=== PATIENT | female | born 1930 | race African-American/Black ===

== ENCOUNTER 2017-04-09 17:33 | Inpatient (IN) | payer OTHER ==
[~2017-04-09] VITALS: Ht 167.6 cm; Wt 82.6 kg
--- NOTE | ~2017-04-09 | EKG ---
[address] [address] ELECTROCARDIOGRAM REPORT Name: MILA PAZ Room #: 202-P ADM IN M.R.#: [id number] Admission: 04/09/17 Attend Phys: Aayush Spears MD Discharge: Date of : 34 Report #: [id number] THIS REPORT FOR: //name// [facility] Test Date: 2017-04-12 Test Time: 17:06:54 Pat Name: MILA PAZ Department: Room: 202 P Gender: F Truck Mechanic: verna : 1930 Requested By: Aayush Spears Order Number: [id number] MD: Hernan Brasher Measurements Intervals [place] Rate: 72 P: 54 [place]: 158 QRS: -22 QRSD: 144 T: 143 QT: 438 QTc: 480 Interpretive Statements Sinus rhythm Multiple premature complexes, vent & supraven Left bundle branch block Compared to ECG 04/10/2017 06:09:08 Ventricular premature complex(es) no longer present Electronically Signed On 04-13-2017 16:07:08 BLUEPRINT PROCESSOR by Hernan Brasher [email or web address] <ELECTRONICALLY SIGNED> By: Hernan Brasher MD 04/13/17 1607 1706 170 Hernan Brasher MD /EPI
--- NOTE | ~2017-04-09 | EKG ---
[address] [address] ELECTROCARDIOGRAM REPORT Name: MILA PAZ Room #: 202-P ADM IN M.R.#: [id number] Admission: 04/09/17 Attend Phys: Aayush Spears MD Discharge: Date of : 32 Report #: [id number] THIS REPORT FOR: //name// [facility] Test Date: 2017-04-10 Test Time: 06:09:08 Pat Name: MILA PAZ Department: Room: 202 P Gender: F Hand Stamper: GR : 1930 Requested By: Aayush Spears Order Number: [id number] MD: Hernan Brasher Measurements Intervals [place] Rate: 68 P: 67 [place]: 141 QRS: -29 QRSD: 141 T: 137 QT: 479 QTc: 510 Interpretive Statements Sinus rhythm Multiple ventricular premature complexes Left bundle branch block Compared to ECG 04/09/2017 18:29:52 No significant changes Electronically Signed On 04-12-2017 12:12:50 RUBBER ROLLER GRINDER OPERATOR by Hernan Brasher [email or web address] <ELECTRONICALLY SIGNED> By: Hernan Brasher MD 04/12/17 1212 8 8 Hernan Brasher MD /ODALYS
--- NOTE | ~2017-04-09 | HC ---
[facility] [address] [place] [address] CONSULTATION Name: MILA PAZ Room #: 202-P [facility] IN .R.#: [id number] Admission: 04/09/17 Attend Phys: Aayush Spears MD Discharge: 04/14/17 Date of : 32 Report #: [id number] THIS REPORT FOR: //name// CC: Aayush Spears DATE OF SERVICE: 04/12/2017 NEUROBEHAVIORAL STATUS EXAMINATION ATTENDING PHYSICIAN: Aayush Spears M.D. CHIMNEY BUILDER: Karl Umanzor, PhD CLINICAL PRESENTATION: The patient is an 86-year-old female, admitted to the [facility] for evaluation and treatment of mental status changes. Apparently, she had a temper outburst while at a grocery store after her Visa card was declined. She was with a peer at the store and was subsequently brought to the hospital for assessment and treatment. She carries diagnoses that include altered mental status, urinary tract infection, abnormal EKG without chest pain, chronic right hip pain, type 2 diabetes mellitus, hypertension and hyperlipidemia. A complete description of her medical condition and history along with medications can be found in her medical record. Neuropsychological consultation was requested to provide assistance in the assessment of cognitive and emotional status and to provide recommendations and services. Prior to this most recent medical event, she was living independently in her own home. She does not drive and has been requiring assistance to maintain community living from her daughter. She has three children. The patient's in 2011. She reports having discontinued driving about 5 years ago. 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 The patient is a college graduate. A prior history of treatment for anxiety/depression is reported. TECHNIQUES UTILIZED: Clinical interview, review of medical records, staff consultation and behavioral observation, Mini Mental Status Exam 2 standard version, clock drawing, calibrated ideational fluency assessment (letter and category fluency) and brief abstract reasoning test. EXAMINATION FINDINGS: The patient was alert and cooperative with the assessment. She was unable to describe the reason for her hospitalization. She does not report having any symptoms or identifying problems that require treatment. She denies difficulty with sleep, appetite, energy level or memory. Subtle difficulty in word finding is noted. She acknowledges subjective feelings of anxiety and depression. [facility] [address] [address] CONSULTATION Name: MILA PAZ Eloise Room #: 202-P [facility] IN [facility].#: [id number] Admission: 04/09/17 Attend Phys: Aayush Spears MD Discharge: 04/14/17 Date of : 32 Report #: [id number] Her performance on the MMSE 2 brief version was in the mild range of impairment with a raw score of 13/16. She was 3/3 for initial registration, 4/5 for orientation to time, 5/[address] and 1/3 correct for immediate recall of 3 items after a brief time delay and distraction. Her performance improved on the MMSE 2 standard version to a raw score of 26/30, which is a T score of 44. She was 4/5 for serial 7's. However, she required much assistance with her performance on serial 7's. Naming, repetition, auditory comprehension, ability to read and follow a single command and write a sentence were within normal limits. She was able to copy a simple geometric design. Her performance in verbal fluency suggests mild to moderate impairment with letter fluency with a raw score of 17 and a T score of 34, which is at the 5th percentile. Category fluency is in the moderate range of impairment with a raw score 25 and a T score of 27, which is at the 1st percentile. Total fluency was extremely low with a raw score of 37, T score of 24, and percentile rank of less than 1. She was 5/8 on a brief abstract test suggesting mild impairment. The patient was unable to set the hands of a clock at a designated time. She was able to draw a clock and place the numbers. However, the concept of hand placement was poor. Deficits are suggested in immediate recall, executive functioning and insight. DIAGNOSTIC IMPRESSION: Major neurocognitive disorder (dementia), possibly due to Alzheimer disease -- with intermittent irritability, mild to moderate severity. Unspecified depressive disorder with anxiety. RECOMMENDATIONS: Continue treatment program for neurocognitive disorder that includes the use of medication to support memory. Increased supervision and structure in her home will likely ensure increased safety upon discharge. The use of compensatory strategies for memory that would include assistance in management of medication, nutrition and finances will likely enhance the degree of success upon her return home. Reduce as much as medically possible the use of medication with sedating features. Thank you very much for allowing me to provide the consultation on this patient. <ELECTRONICALLY SIGNED> By: Karl Umanzor, PhD 04/19/17 1339 1330 40 Karl Umanzor, PhD /nt
--- NOTE | ~2017-04-09 | H ---
[facility] [place] [address] HISTORY AND PHYSICAL Name: MILA PAZ Room #: 202-P ADM IN M.R.#: [id number] Admission: 04/09/17 Attend Phys: Aayush Spears MD Discharge: Date of : 32 Report #: [id number] THIS REPORT FOR: //name// CC: [facility] Verito Umanzor PhD DATE OF SERVICE: 04/10/2017 CHIEF COMPLAINT: Meltdown. HISTORY OF PRESENT ILLNESS: The patient is an 86-year-old female who was brought to the Emergency Department by [facility] ambulance after suffering a "meltdown" at the grocery store. Apparently, they declined her Visa card and she was quite visibly upset and was screaming and hollering at the store at the scene, prompting the phone call. Apparently, she was there with her former 's niece, Roxanna Myrick, and Ms. Myrick helped make the arrangements to get her to the hospital. It is noteworthy to mention that the patient had a total hip arthroplasty just over a year ago at [facility]. In the time since that surgery, she has suffered with chronic severe right hip pain. During a followup visit recently her hip was reevaluated and it was recommended to her that she have revision of that surgery. Prior to being able to undergo another hip surgery, it was recommended that she have some major dental work performed. She was seen at the [facility] and was told that she needed to have 4 teeth removed. The patient is uncertain as to when that is to be scheduled. She relies very heavily upon her daughter, Remington, and upon friends for getting out and about and making doctors' appointments etc. The patient admits to having great difficulties with sleep, especially in the last several months. PAST MEDICAL HISTORY: Includes osteoarthritis, dementia, hypertension, hyperlipidemia, hip arthroplasty and diabetes mellitus type 2. She denies any significant history of heart disease or stroke. ALLERGIES: She has no known drug allergies. MEDICATIONS: On arrival at the hospital include [place], memantine, pioglitazone, simvastatin, lisinopril, Lexapro, Januvia and hydralazine. SOCIAL HISTORY: She is and a retired federal employee, having worked previously at the [employer]. She has two daughters, one of whom lives in [facility] and the other who lives here locally in [facility]. [facility] [address] [place] [address] HISTORY AND PHYSICAL Name: MILA PAZ Room #: 202-P [facility] IN [facility]#: [id number] Admission: 04/09/17 Attend Phys: Aayush Spears MD Discharge: Date of : 32 Report #: [id number] FAMILY HISTORY: Significant for longevity, diabetes and osteoarthritis. REVIEW OF SYSTEMS: The patient denies any headaches. She denies vision changes. She does have some chronic hearing loss, unchanged. She denies any problems with mouth pain or difficulty swallowing. She denies any neck pain or decreased range of motion. She denies chest pain or shortness of breath. She denies abdominal pain. Her bowel habits are reportedly regular. She denies any urinary symptoms at the moment (but was admitted with a diagnosis of urinary tract infection after her Emergency Room workup). She admits to severe problems with fatigue and inability to sleep because of her hip pain. The pain medication does help her manage the pain, but she is afraid of addiction issues. She does not drive. PHYSICAL EXAMINATION: VITAL SIGNS: When the patient presented in the Emergency Room, her vital signs revealed temperature of 36.4 degrees Celsius, pulse of 76, blood pressure of 135/48, respirations of 20 per minute and an oxygen saturation of 98%. Her self-reported weight was 161 pounds. GENERAL: The patient is a more pleasant elderly female without significant distress at the time of my exam the next morning. HEENT: Extraocular muscles are intact. The oropharynx is moist and pink. Sinuses are nontender. Hearing is mildly diminished bilaterally. NECK: Without adenopathy, thyromegaly, JVD, mass or significant bruit. LUNGS: Clear bilaterally. CARDIAC: Reveals a regular rhythm without significant murmur, gallop or tachycardia. ABDOMEN: Soft. Bowel sounds are present. No visceromegaly or masses. EXTREMITIES: There is trace edema in the lower extremities. Otherwise, she has good range of motion and pulses. There is tenderness in the right hip without redness or effusion. Prior hip arthroplasty wound has healed completely. NEUROLOGICAL: She is alert. She is oriented to person and place and time. There is no evidence of hallucinations or delusions. Her short-term memory is better than expected and she was able to give a reasonable accounting of what happened at the grocery store the night before, although there are holes. Her long-term memory is also better than expected -- she recognizes me on site and called me by name without prompting. She has significant recollections about her experiences at [facility] when she had her hip surgery, and she is very emotional in her assessments of others, telling me that I am her favorite doctor, and telling me that one of her daughters is being mean to her and so forth. SKIN: No overt skin breakdown or rashes. LABORATORY DATA: The EKG from the Emergency Room reveals a sinus rhythm with a rate of 77 beats per minute and a left bundle branch block. This was compared in the Emergency Room with a prior EKG from 04/09/2011, which at that time did [facility] [address] [place] [address] HISTORY AND PHYSICAL Name: MILA PAZ Room #: 202-P ADM IN ..#: [id number] Admission: 04/09/17 Attend Phys: Aayush Spears MD Discharge: Date of : 32 Report #: [id number] not reveal a left bundle branch block. She has had a subsequent one this morning, which is unchanged. Her urinalysis shows 2+ leukocyte esterase with 6-15 white blood cells and a few bacteria. Culture is pending. Blood chemistry reveals sodium 139, potassium 4.0, chloride 103, bicarbonate 27, BUN of 12, creatinine 1.1. The anion gap is 9. The estimated GFR is 57. The glucose was 179, nonfasting. Calcium was 10.2. No albumin was obtained. The troponin was 0.04. The CBC showed a white count of 8500 with a hemoglobin of 13.3, hematocrit 40.8, 79.9 is the mean cell volume, just below the lower limits of normal; RDW is 16.4, which is elevated and the platelet count is 280,000. Mechanical differential was performed, which is relatively normal. Urinalysis as described above and other than the infection, appeared reasonably normal. I have subsequently obtained a chest x-ray, which is normal. ASSESSMENT AND PLAN: 1. Altered mental status of uncertain etiology in the setting of senile dementia and depression and chronic insomnia -- I will obtain a CT scan of the head to assess for brain pathology, EEG to assess for as yet undiagnosed seizure disorder and will pursue a metabolic workup as well. 2. Urinary tract infection. We will await culture and continue antibiotics. 3. Abnormal unchanged EKG without chest pain -- the Emergency Room staff requested a Cardiology consult and I agree. Troponins were benign serially and so this is not an acute myocardial infarction at this time. However, given her apparent near future need for major hip surgery, a stress test is indicated. I will defer to the credit risk analyst about echocardiogram as well. 4. Chronic right hip pain, apparently due to complications or failure of prior arthroplasty. While the patient is hospitalized, we will request repeat films and ask for orthopedic surgical consultation in order to get a second opinion. The patient is agreeable to proceeding there as well. 5. Type 2 diabetes mellitus. We will continue current medications and monitor her glycemic control. 6. Hypertension. Continue current medications and monitor control. 7. Hyperlipidemia. We will continue current medications and monitor control as an outpatient. Please note, I did request Psychiatry and Neuropsychology consultations to help assess the patient's continuing mentation. My personal feeling in this matter is that her chronic sleep deprivation from hip pain is a very significant contributor to her explosive behavior at the grocery store on the date of admission. Since she lives alone, I am very cautious about recommending medications for sleep. I will await the recommendations of the consultants. <ELECTRONICALLY SIGNED> By: Aayush Spears MD 04/11/17 1145 1030 1123 Aayush Spears MD /nt
--- NOTE | ~2017-04-09 | CATHLAB ---
[facility] [place] [address] INVASIVE PROCEDURE REPORT Name: BRANDIMILA M Room #: 202-P ADM IN ..#: [id number] Admission: 04/09/17 Attend Phys: Aayush Spears MD Discharge: Date of : 32 Date of Service: 04/11/17 1317 Report #: [id number] THIS REPORT FOR: //name// APPROVED REPORT Patient Details Patient Status: In-Patient Room #: The patient is a 86 year-old female Event Personnel Dallin Perez Software Engineer Intern, Mario Campbell RN, Mario Campbell RN, Jose Antonio Angela Ellenburg, Ariel RN RN, Elizabeth Parker RTKaren Monitor Procedures Performed Left Heart Cath w/or w/o Coronaries [id number] [facility] Indication Arrhythmia, Dyspnea, Positive stress test Risk Factors Hypercholesterolemia, Hypertension Procedure Narrative The Right Groin^ was infiltrated with 1% Lidocaine subcutaneous anesthesia. A PINNACLE 4FR Sheath #[id number] sheath was inserted into the RFA^. Coronary angiography was performed using coronary diagnostic catheters. The right coronary system was accessed and visualized with a JR4 catheter. The left coronary system was accessed and visualized with a JL4 catheter. The left ventricle was accessed and visualized with a PIGTAIL catheter. Left ventricular/Aortic Valve gradient assessed via catheter pullback. Left ventriculogram was performed in 30 degree projection. Hemostasis was obtained with manual pressure following sheath removal without any complications. The patient tolerated the procedure well and there were no complications associated with the procedure. There was no hematoma. Fluoro Time: 2.10 minutes Dose: DAP 335.00 cGycm2 130 mGy Contrast Type and Amount: Omnipaque 130 ml Coronary Angiography The patient's coronary anatomy is co- dominant. [facility] [address] [place] [address] INVASIVE PROCEDURE REPORT Name: BRANDIMILA Eloise Room #: 202-P [facility] IN ..#: [id number] Admission: 04/09/17 Attend Phys: Aayush Spears MD Discharge: Date of : 32 Date of Service: 04/11/17 1317 Report #: [id number] Diagnostic Cath Left Main Large-caliber vessel, mild disease in the distal segment, 30%. LAD Mild plaquing at the ostium, 30%. There is also mild disease in the mid segment, 30%. Diagonal 1 Moderate size caliber vessel, mild disease in the proximal segment, 30%. Circumflex Codominant vessel. After giving off the only OM artery, there is a severe stenosis in the mid segment, 70%. This is a small-caliber vessel, recommend medical therapy. OM1 Moderate to large size caliber vessel, traveling down the lateral wall and supplies multiple branches. This vessel supplies the lateral and inferolateral segments. Right Coronary Patent vessel, no flow limiting lesions. R PDA Patent vessel, no flow limiting lesions. Left Ventriculography The left ventricle is normal in size with decreased contractility. The left ventricular ejection fraction is estimated to be 40-45%. Hemodynamics The aortic pressure is 181/86 mmHg with a mean of 128 mmHg. The left ventricular pressure is 189/84 mmHg with a mean of mmHg. The left ventricular end diastolic pressure is 88 mmHg. Conclusion 1. Mild disease in the LAD. 2. 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 3. Mild to moderate nonischemic cardiomyopathy. 4. Recommend medical therapy. <ELECTRONICALLY SIGNED> By: Dallin Perez MD 04/11/17 1317 16 16 Dallin Perez MD /INF
--- NOTE | ~2017-04-09 | EKG ---
[address] [address] ELECTROCARDIOGRAM REPORT Name: MILA PAZ Room #: 170-9 ADM IN M.R.#: [id number] Admission: 04/09/17 Attend Phys: Aayush Spears MD Discharge: Date of : 32 Report #: [id number] THIS REPORT FOR: //name// [facility] Test Date: 2017-04-09 Test Time: 18:29:52 Pat Name: MILA PAZ Department: Room: 170 Gender: F Garment Liner: MZOOK : 1930 Requested By: Anuj Canela Order Number: [id number] MD: Hernan Brasher Measurements Intervals [place] Rate: 77 P: 78 ID: [id number] QRS: -26 QRSD: 138 T: 139 QT: 443 QTc: 502 Interpretive Statements Sinus rhythm Multiple ventricular premature complexes Left bundle branch block Compared to ECG 04/09/2011 17:30:53 Left bundle-branch block now present Myocardial infarct finding no longer present Electronically Signed On 04-09-2017 21:28:42 MACHINE SETTER SHEET METAL by Hernan Brasher [email or web address] <ELECTRONICALLY SIGNED> By: Hernan Brasher MD 04/09/178 28 28 Hernan Brasher MD /EPI
--- NOTE | ~2017-04-09 | HC ---
[facility] [place] [address] CONSULTATION Name: MILA PAZ Room #: 202-P [facility] IN M.R.#: [id number] Admission: 04/09/17 Attend Phys: Aayush Spears MD Discharge: Date of : 32 Report #: [id number] THIS REPORT FOR: //name// CC: Aayush Spears MD DATE OF SERVICE: 04/10/2017 ORTHOPEDIC CONSULT NOTE PRIMARY CARE DOCTOR: Aayush Spears MD REASON FOR CONSULTATION: Right hip pain. HISTORY OF PRESENT ILLNESS: The patient is an 86-year-old female who was brought to the Emergency Department by [facility] ambulance after an apparent incident at the grocery store where she became very upset. I have been asked to evaluate her right hip for chronic persistent right hip pain. She reports undergoing surgery to treat a right hip fracture in 2016 the day after Thanksgiving and reports that it never healed well and she has had chronic pain and pain with weightbearing, predominantly in her groin and hip area. Upon further discussion, she reports seeing Dr. Ruiz at [place] who was recommended a revision to a total hip arthroplasty. She reports to me that she would like any surgery that she has done at [facility]. From the medical record, it appears that she was recommended to have some major dental work done. She apparently was seen at [facility] and was told she needed to have 4 teeth removed and I am uncertain if this has been done. PAST MEDICAL HISTORY: Dementia, hypertension, hyperlipidemia, right intramedullary nail fixation of the hip, type 2 diabetes. ALLERGIES: No known drug allergies. HOME MEDICATIONS: Include [place], memantine, pioglitazone, simvastatin, lisinopril, Lexapro, Januvia, and hydralazine. SOCIAL HISTORY: She is . She reports using a walker for ambulation. She denies smoking or drinking alcohol. She has a daughter who lives in [facility] and another one lives here locally in [place]. She apparently relies heavily on friends and family to get her around. REVIEW OF SYSTEMS: NEUROLOGIC: Denies numbness or tingling in her extremities. MUSCULOSKELETAL: Reports some diffuse left lower extremity pain per her due to overuse. She reports right knee pain as well. See HPI. [address] [address] CONSULTATION Name: IMLA PAZ Room #: 202-P [facility] IN [facility].#: [id number] Admission: 04/09/17 Attend Phys: Aayush Spears MD Discharge: Date of : 32 Report #: [id number] PAST SURGICAL HISTORY: Left total knee arthroplasty with revision of left total knee arthroplasty, intramedullary nail fixation of the right hip, appendectomy, possibly a D and C. PHYSICAL EXAMINATION: GENERAL: The patient is alert and oriented x 3. She interacts appropriately. She is a well-developed, well-nourished female in no acute distress. She is very easy to speak with. VITAL SIGNS: Most recent vital signs show her blood pressure of 129/68, temperature is 98, heart rate is 70, respiration rate 16. EXTREMITIES: Examination of her right lower extremity, skin is clean, dry and intact. She has brisk capillary refill. She has some diffuse swelling to her knee with no significant knee joint effusion. She has diffuse tenderness to her right thigh, knee and proximal leg. She has no tenderness to the distal leg, ankle or foot. She reports normal sensation. EHL, FHL, dorsiflexion and plantar flexion are intact. She is able to maintain a straight leg raise; however, any range of motion to her right knee or hip are painful. Left lower extremity exam, sensation is intact to light touch throughout. EHL, FHL, dorsiflexion and plantar flexion are intact. There is no tenderness to palpation throughout the left leg, ankle or foot. There is some mild diffuse knee joint tenderness. She is able to perform a straight leg raise. There is no pain with left hip range of motion. There is some mild pain with left knee range of motion. LABORATORY DATA: Done on 04/09/2017 show white blood cell count 8.5, hemoglobin 13.3, hematocrit 40.8, platelet count 280. RADIOGRAPHS: AP pelvis and AP and lateral of the right femur show an intramedullary nail in the femur as well and into the head, cephalomedullary device with apparent nonunion of the basicervical or intertrochanteric femur fracture with cut out of the screw into the articular surface. Distally, one of the proximal cross screws may show some lucency. 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 At this point, I am in agreement with her other evaluating physician, Dr. Ruiz that she would be best served with a removal of her hardware and placement of a total hip arthroplasty. I will have one of my [facility] partners formally [facility] partners see this patient over the weekend and further planning can be established. I will also order AP and lateral views of the bilateral knees. Questions were encouraged and answered to the best of my ability. <ELECTRONICALLY SIGNED> By: Stephenie Sanchez MD 04/14/17 1411 1732 0411 Stephenie Sanchez MD /nt
--- NOTE | ~2017-04-09 | EKG ---
[address] [address] ELECTROCARDIOGRAM REPORT Name: MILA PAZ Room #: 202-[facility] IN .R.#: [id number] Admission: 04/09/17 Attend Phys: Aayush Spears MD Discharge: 04/14/17 Date of : 32 Report #: [id number] THIS REPORT FOR: //name// [facility] Test Date: 2017-04-14 Test Time: 06:25:05 Pat Name: MILA PAZ Department: Room: 202 Gender: F District Branch Manager: ANNALISA : 1930 Requested By: Hernan Brasher Order Number: [id number] MD: Hernan Brasher Measurements Intervals [place] Rate: 72 P: 94 [place]: 146 QRS: -11 QRSD: 142 T: 161 QT: 431 QTc: 472 Interpretive Statements Sinus rhythm Ventricular premature complex Left bundle branch block Compared to ECG 04/12/2017 17:06:54 Ventricular premature complex(es) now present Electronically Signed On 04-14-2017 16:26:56 [employer] by Hernan Brasher [email or web address] <ELECTRONICALLY SIGNED> By: Hernan Brasher MD 04/14/17 1626 0625 0625 Hernan Brasher MD /EPI
--- NOTE | ~2017-04-09 | EEG ---
[facility] [place] [address] ELECTROENCEPHALOGRAM Name: MILA PAZ Room #: 202-P [facility] IN M.R.#: [id number] Admission: 04/09/17 Attend Phys: Aayush Spears MD Discharge: 04/14/17 Date of : 32 Report #: [id number] THIS REPORT FOR: //name// CC: Aayush Spears HISTORY: The patient is an 86-year-old female with altered mental status. An EEG is requested for further evaluation. DESCRIPTION: The awake record consists of a poorly developed posterior dominant rhythm. The majority of the record consists of eye blink artifact, EKG artifact and low amplitude 20-25 cycle per second activity predominant over the frontocentral head regions. No focal abnormalities or epileptiform discharges were noted. Photic stimulation was not activating. No significant sleep was recorded. IMPRESSION: This is an unremarkable adult awake record. A well-developed posterior dominant rhythm was not seen and is a nonspecific finding. Beta activity was seen and may be secondary to medication effect with a benzodiazepine or barbiturate. There is n evidence of seizure activity. <ELECTRONICALLY SIGNED> By: Kia Hodge DO 04/17/17 1024 1653 194 Kia Hodge DO /nt
--- NOTE | ~2017-04-09 | 2DMMODE ---
[place] [address] [facility] [place] [address] 2 D/M-MODE ECHOCARDIOGRAM Name: MILA PAZ Room #: 202-P [facility] IN ..#: [id number] Admission: 04/09/17 Attend Phys: Aayush Spears MD Discharge: Date of : 32 Date of Service: 04/10/17 1214 Report #: [id number] THIS REPORT FOR: //name// APPROVED REPORT Study performed: 04/10/2017 10:53:36 EXAM: Comprehensive 2D, Doppler, and color-flow Echocardiogram Patient Location: Bedside Room #: 202 Status: routine BSA: 1.85 HR: 67 bpm BP: 129/68 mmHg Other Information Study Quality: Good Indications Diabetes Hypertension/HDD LBBB, HLP. 2D Dimensions RVDd: 35.14 mm LVEF(%): 40.66 (>50%) IVSd: 13.96 (7-11mm) LVOT Diam: 20.44 (18-24mm) LVDd: 42.14 mm PWd: 13.37 (7-11mm) Ascending Ao: 29.57 (22-36mm) LVDs: 33.87 (25-40mm) Aortic Root: 29.86 mm IVC: 24.00 mm Sutherland's LVEF: 40.66 % Volumes Left Atrial Volume (Systole) Single Plane 4CH: 63.41 mL Single Plane 2CH: 37.29 mL LA ESV Index: 29.00 mL/m2 Aortic Valve AoV Peak Ervin.: 1.37 m/s AO Peak Gr.: 7.52 mmHg LVOT Max P.12 mmHg LVOT Max V: 1.01 m/s BLAKE Vmax: 2.43 cm2 Mitral Valve E/A Ratio: 0.6 [facility] [place] [address] 2 D/M-MODE ECHOCARDIOGRAM Name: MILA PAZ Room #: 202-P [facility] IN ..#: [id number] Admission: 04/09/17 Attend Phys: Aayush Spears MD Discharge: Date of : 32 Date of Service: 04/10/17 1214 Report #: [id number] MV Decel. Time: 236.51 ms MV E Max Ervin.: 0.57 m/s MV A Ervin.: 0.99 m/s MV PHT: 68.59 ms IVRT: 156.86 ms Pulmonary Valve PV Peak Ervin.: 1.08 m/s PV Peak Gr.: 4.[address] End Vmax: 1.45 m/s Pulmonary Vein P Vein S: 0.63 m/s P Vein A: 0.25 m/s P Vein D: 0.35 m/s P Vein A Dur.: 106.1 msec P Vein S/D Ratio: 1.80 Tricuspid Valve TR Peak Ervin.: 2.84 m/s TR Peak Gr.: 32.16 mmHg PA Pressure: 42.00 mmHg Left Ventricle The left ventricle is normal size. There is mild global hypokinesis of the left ventricle. Mild to moderate concentric left ventricular hypertrophy. Left ventricular systolic function is mildly decreased. LVEF is 40-45%. Grade I - abnormal relaxation pattern. Right Ventricle The right ventricle is normal size. The right ventricular systolic function is normal. Atria The left atrium size is normal. The right atrium size is normal. Aortic Valve The aortic valve is normal in structure. Aortic valve is calcified. No aortic regurgitation is present. There is no aortic valvular stenosis. Mitral Valve The mitral valve is normal in structure. Trace mitral regurgitation. No evidence of mitral valve stenosis. Tricuspid Valve The tricuspid valve is normal in structure. There is trace to mild tricuspid regurgitation. Estimated PAP 42 mmHg. There is moderate [facility] [address] [place] [address] 2 D/M-MODE ECHOCARDIOGRAM Name: MILA PAZ Room #: 202-P [facility] IN [facility]#: [id number] Admission: 04/09/17 Attend Phys: Aayush Spears MD Discharge: Date of : 32 Date of Service: 04/10/17 1214 Report #: [id number] pulmonary hypertension. Pulmonic Valve The pulmonary valve is normal in structure. Trace pulmonic regurgitation. Great Vessels The aortic root is normal in size. IVC is dilated and collapses >50% with inspiration. Pericardium Small anterior pericardial effusion noted in the subcostal view. <Conclusion> The left ventricle is normal size. There is mild global hypokinesis of the left ventricle. LVEF is 40-45%. The aortic valve is normal in structure. Aortic valve is calcified. The mitral valve is normal in structure. Trace mitral regurgitation. The tricuspid valve is normal in structure. There is trace to mild tricuspid regurgitation. Estimated PAP 42 mmHg. There is moderate pulmonary hypertension. The pulmonary valve is normal in structure. Trace pulmonic regurgitation. Small anterior pericardial effusion noted in the subcostal view. <ELECTRONICALLY SIGNED> By: Eric Wright MD 04/10/17 1214 13 13 Eric Wright MD /INF
[~2017-04-09 17:33] MED LIST: ACTOS 45 MG45 M1 PO; HYDRALAZINE 5050 M1 PO; JANUVIA100 MG PO; LEXAPRO 10 MG T10 MG PO; LISINOPRIL10 MG PO; NAMENDA 10 MG T10 MG PO; NORCO 5-325 TA1 EACH PO; SIMVASTATIN20 MG PO
[2017-04-09 17:36] VITALS: BP 135/48
[2017-04-09 19:08] LABS: ABSOLUTE NEUTROPHILS 5.9 thou/uL (1.4-8.2); BASOPHILS 0.7 % (0.0-2.0); EOSINOPHILS 1.6 % (0.0-3.0); HEMATOCRIT 40.8 % (37.0-47.0); HEMOGLOBIN 13.3 gm/dL (12.0-15.0); LYMPHOCYTES 19.8 % (24.0-44.0); MANUAL DIFF NO; MCH 26.1 pg (26.0-34.0); MCHC 32.6 g/dL (28.0-37.0); MCV 79.9 fL (80.0-100.0); MONOCYTES 7.8 % (1.0-8.0); PLATELET COUNT 280 thou/uL (150-400); POLYS 70.1 % (36.0-66.0); RDW 16.4 % (10.5-14.5); WBC 8.5 thou/uL (4.0-11.0)
[2017-04-09 19:12] LABS: ANION GAP 9 mmol/L (7-16); BUN 12 mg/dL (7-18); CALCIUM 10.2 mg/dL (8.5-10.1); CHLORIDE 103 mmol/L (98-107); CO2 27 mmol/L (21-32); CREATININE 1.1 mg/dL (0.6-1.0); GLUCOSE 179 mg/dL (74-106); SODIUM 139 mmol/L (136-145)
[2017-04-09 19:21] LABS: TROPONIN-I < 0.04 ng/mL (<0.06)
[2017-04-09 19:35] LABS: URINE BILIRUBIN NEGATIVE (Negative); URINE BLOOD TRACE (Negative); URINE COLOR YELLOW; URINE GLUCOSE-RANDOM* NEGATIVE (Negative); URINE KETONES NEGATIVE (Negative); URINE NITRITE NEGATIVE (Negative); URINE PROTEIN (DIPSTICK) NEGATIVE (Negative); URINE SPECIFIC GRAVITY 1.015 (1.003-1.035); URINE UROBILINOGEN 0.2 E.U./dl (0.2-1.0)
[2017-04-09 19:44] LABS: BACTERIA 1-9 Few /HPF (None Seen); CASTS None Seen /LPF (None Seen); CRYSTALS None Seen /LPF (None Seen); SQUAMOUS 0-3 Few /LPF (0-3); URINE RBC None Seen /HPF (0-2); URINE WBC 6-15 Few /HPF (0-5)
[2017-04-09 20:26] VITALS: BP 143/65
[2017-04-09 21:15] VITALS: BP 153/75
[2017-04-09 23:25] VITALS: BP 153/71
[2017-04-10 04:00] VITALS: BP 130/51
[2017-04-10 07:38] VITALS: BP 129/68
[2017-04-10 19:21] VITALS: BP 136/62
[2017-04-10 23:11] VITALS: BP 120/49
[2017-04-11 04:01] VITALS: BP 139/67
[2017-04-11 06:44] LABS: HEMATOCRIT 36.9 % (37.0-47.0); HEMOGLOBIN 12.2 gm/dL (12.0-15.0); MCH 26.5 pg (26.0-34.0); MCHC 33.1 g/dL (28.0-37.0); RBC 4.62 mil/uL (4.20-5.00); RDW 15.9 % (10.5-14.5); WBC 6.9 thou/uL (4.0-11.0)
[2017-04-11 07:03] LABS: ALBUMIN 2.8 g/dL (3.4-5.0); CALCIUM 8.8 mg/dL (8.5-10.1); POTASSIUM 3.7 mmol/L (3.5-5.1); TOTAL BILIRUBIN 0.3 mg/dL (<0.1-1.0); TOTAL PROTEIN 6.2 g/dL (6.4-8.2)
[2017-04-11 07:30] LABS: FOLIC ACID 18.1 ng/mL (8.6-58.9); TSH 0.494 uIU/mL (0.358-3.740)
[2017-04-11 07:46] VITALS: BP 134/73
[2017-04-11 11:45] VITALS: BP 106/66
[2017-04-11 15:10] VITALS: BP 142/82
[2017-04-11 19:27] VITALS: BP 150/70
[2017-04-11 23:11] VITALS: BP 126/61
[2017-04-11 23:11] LABS: GLYCOHEMOGLOBIN (HGB A1C) 7.2 % (4.8-5.6)
[2017-04-12 03:45] VITALS: BP 152/66
[2017-04-12 07:40] VITALS: BP 131/66
[2017-04-12 07:59] LABS: HEMATOCRIT 37.9 % (37.0-47.0); HEMOGLOBIN 12.5 gm/dL (12.0-15.0); MCH 26.1 pg (26.0-34.0); MCHC 32.9 g/dL (28.0-37.0); MCV 79.4 fL (80.0-100.0); RBC 4.78 mil/uL (4.20-5.00); RDW 16.1 % (10.5-14.5); WBC 6.9 thou/uL (4.0-11.0)
[2017-04-12 08:09] LABS: CALCIUM 9.2 mg/dL (8.5-10.1); CREATININE 1.1 mg/dL (0.6-1.0); POTASSIUM 3.7 mmol/L (3.5-5.1)
[2017-04-12 12:40] VITALS: BP 133/67
[2017-04-12 17:25] VITALS: BP 128/73
[2017-04-12 19:19] VITALS: BP 127/58
[2017-04-13 04:07] VITALS: BP 147/61
[2017-04-13 09:11] VITALS: BP 129/51
[2017-04-13 12:47] VITALS: BP 143/51
[2017-04-13 16:06] VITALS: BP 122/57
[2017-04-13 19:42] VITALS: BP 109/50
[2017-04-14 03:49] VITALS: BP 140/67
[2017-04-14 09:00] VITALS: BP 136/72
[2017-04-14 10:04] VITALS: BP 136/72
[2017-04-14 12:01] VITALS: BP 115/92
== END 2017-04-14 14:22 | disposition home health service (06) | DRG 286 ==
LOC: ER 17:33 → 2N 20:04 → EROBS 20:04 → 2N 20:57 → ENTRNSPT 04-14 14:03 → EDTRNSPTSTS 04-14 14:13 → 2N 04-14 14:22
PROVIDERS: Internal Medicine; Internal Medicine Cardiovascular Disease; Nurse Practitioner
PROC: 4A023N7 Measurement of Cardiac Sampling and Pressure, Left Heart, Percutaneous Approach (ICD-10-PCS; principal; 2017-04-11)
PROC: B2151ZZ Fluoroscopy of Left Heart using Low Osmolar Contrast (ICD-10-PCS; principal; 2017-04-11)
PROC: B2111ZZ Fluoroscopy of Multiple Coronary Arteries using Low Osmolar Contrast (ICD-10-PCS; principal; 2017-04-11)
DX: I25.10 Atherosclerotic heart disease of native coronary artery without angina pectoris (principal); G93.41 Metabolic encephalopathy; N39.0 Urinary tract infection, site not specified; F01.51 Vascular dementia, unspecified severity, with behavioral disturbance; F02.81 Dementia in other diseases classified elsewhere, unspecified severity, with behavioral disturbance; E44.0 Moderate protein-calorie malnutrition; I42.9 Cardiomyopathy, unspecified; R41.82 Altered mental status, unspecified; I44.7 Left bundle-branch block, unspecified; I49.9 Cardiac arrhythmia, unspecified; I10 Essential (primary) hypertension; E78.5 Hyperlipidemia, unspecified; E11.9 Type 2 diabetes mellitus without complications; M25.551 Pain in right hip; G30.9 Alzheimer's disease, unspecified; E78.00 Pure hypercholesterolemia, unspecified; G89.29 Other chronic pain; Z96.652 Presence of left artificial knee joint; F41.8 Other specified anxiety disorders; Z86.73 Personal history of transient ischemic attack (TIA), and cerebral infarction without residual deficits; Z83.3 Family history of diabetes mellitus; Z79.899 Other long term (current) drug therapy; Z82.61 Family history of arthritis; Z90.49 Acquired absence of other specified parts of digestive tract; Z82.49 Family history of ischemic heart disease and other diseases of the circulatory system; Z23 Encounter for immunization; Z87.81 Personal history of (healed) traumatic fracture
CPT/HCPCS: 10081

== ENCOUNTER 2018-12-13 12:11 | Emergency (ER) | payer OTHER ==
[~2018-12-13] VITALS: Ht 167.6 cm; Wt 79.4 kg
[2018-12-13 17:55] VITALS: BP 145/51
== END 2018-12-13 13:57 | disposition home or self-care (01) ==
LOC: ER 12:11
DX: R11.0 Nausea (principal); I10 Essential (primary) hypertension; E11.9 Type 2 diabetes mellitus without complications; E78.5 Hyperlipidemia, unspecified; F03.90 Unspecified dementia, unspecified severity, without behavioral disturbance, psychotic disturbance, mood disturbance, and anxiety; Z90.710 Acquired absence of both cervix and uterus

== ENCOUNTER 2018-12-16 12:24 | Inpatient (IN) | payer OTHER ==
[~2018-12-16] VITALS: Ht 167.6 cm; Wt 81.9 kg
--- NOTE | ~2018-12-16 | HC ---
[facility] [place] [address] CONSULTATION Name: MILA PAZ Room #: 524A-A ADM IN M.R.#: [id number] Admission: 12/16/18 Attend Phys: Moraima Boone DO Discharge: Date of : 32 Report #: [id number] THIS REPORT FOR: //name// CC: MORAIMA Russell MD DATE OF SERVICE: 01/09/2019 INTRODUCTION: The patient is an 88-year-old female being seen in the [facility] floor for general foot care. The patient has a history of diabetes mellitus. Denies past foot complications. She denies neurovascular complications, ulcers, etc. She has been caring for her own feet in the past. Her current issues stem from the need for nail care. Remainder of her past medical history with regard to this consultation not remarkable. PHYSICAL EXAMINATION: Pedal exam, dorsalis pedis, posterior tibial pulses are graded at 1/4. Capillary refill time is within normal limits. There is mild bilateral 1+ pedal edema. Neurologically, the patient is grossly intact to all sensory stimulus including sharp, dull, proprioceptive and vibratory sensations. She is able to assist with Hazel Hurst-Aidan monofilament at all levels. The patient's dermatologic exam reveals dry skin, free of ulcerations, wounds or other irregularities. General skin condition and integrity is within normal limits. The patient's nails are thickened, elongated, show clinical evidence of onychodystrophy associated with onychomycosis. There are no acute findings with regard to her nails. Nails are trimmed today. No additional underlying pathology was noted. IMPRESSION: 1. Diabetes mellitus, low foot risk. 2. Onychodystrophy associated with onychomycosis, bilateral feet. PLAN: The patient's nails were debrided as discussed, no further treatment was required. It has been a pleasure having the opportunity of caring for this individual, be pleased to follow up with her upon request. By: 1030 2218 Luca Matias DPM /estephanie
--- NOTE | ~2018-12-16 | D ---
[facility] [place] [place] [address] DISCHARGE SUMMARY Name: MILA PAZ Room #: 524A-A [facility] IN M.R.#: [id number] Admission: 12/16/18 Attend Phys: Saroj Boone DO Discharge: 01/13/19 Date of : 32 Report #: [id number] THIS REPORT FOR: //name// CC: Saroj Spears DATE OF SERVICE: 01/13/2019 PRIMARY ATTENDING PHYSICIAN: Saroj Boone DO PREMIUM REPRESENTATIVE AT THE TIME OF DISCHARGE: Aayush Spears MD. DISCHARGE DIAGNOSIS: Major neurocognitive disorder with behavioral disturbance, much improved. Medical comorbidities are as follows, gastroesophageal reflux disease, on Protonix ____ x 3 months; type 2 diabetes mellitus, stable; hypertension; osteoarthritis, multiple sites; and prolonged QTC from 2017 EKG. The patient is discharged to [facility]. Psychiatric and medical care to be performed at that facility. The patient is on 1800-calorie diabetic diet. Also, the patient gets Glucerna breakfast for weight gain. DISCHARGE MEDICATIONS: Aspirin 81 mg p.o. daily for cardiac protection, atorvastatin 10 mg p.o. at bedtime for hyperlipidemia, hydralazine 50 mg p.o. daily for hypertension, amlodipine 5 mg p.o. daily for hypertension, lisinopril 10 mg oral for hypertension, memantine 10 mg oral twice a day for cognitive enhancement, Protonix 40 mg daily at bedtime for GERD, pioglitazone 45 mg oral daily for diabetes, cholecalciferol 5000 international units oral daily. LABORATORY DATA: From this hospitalization, ____ was 100. I believe that the patient had a brief medical admission prior to being admitted to the [facility]. Actually, she is from the [facility], so most of the labs were done there. REASON FOR ADMISSION: She is sent by the EMS due to being confused and concerns about her living environment, was unkempt, unclean, noisy. She was guarded. Apparently, she also made a threat of suicide to office staff member. HOSPITAL COURSE: The patient was admitted to the Geriatric Psychiatry Unit. The patient very quickly had resolution of mood symptoms, although bipolar disorder had been entertained. I believe the patient's performance from ____ 30. Her difficulty functioning in independent living would be suggestive of at least some major neurocognitive disorder of mild degree. We got some input from her family. She only has 1 daughter local, son in [place], other daughter in [facility] [address] [facility] [facility] [place] [address] DISCHARGE SUMMARY Name: MILA PAZ Room #: 524A-A [facility] IN [facility]#: [id number] Admission: 12/16/18 Attend Phys: Saroj Boone DO Discharge: 01/13/19 Date of : 32 Report #: [id number] [place]. None were great sources of collateral, but nonetheless, she had previously been placed in nursing facility and had been pulled out of there due to care concerns from her daughter. The patient now is still unable to take care of herself and requiring 24 x 7 supervision and assistance in areas of medication management, appointments, higher level decisions. Actually, she had a DPOA in place ____ copy of. The patient improved. No suicidal or homicidal. At the time of discharge, she was calm and cooperative. There was an extended delay that was due to her not having suitable placement. PHYSICAL EXAMINATION: VITAL SIGNS: BP on discharge 122/58, respiratory rate regular. MENTAL STATUS EXAMINATION: This is a well-developed, fairly nourished female, appearing stated age, has an assisted gait, wearing glasses. Attention intact. Concentration is intact. Speech is normal in rate, volume, and tone. Thought process is linear and goal directed. Thought content focused on discharge. Mood and affect congruent and euthymic, fair range. Denies HI or SI. Denied hopelessness or helplessness. Denied suicidal or homicidal intent or plan. Memory noted to be slightly impaired. Insight fair to limited. Judgment fair to limited. Fund of knowledge in the average range. Prognosis for this patient is fair to guarded given her major neurocognitive disorder and will depend on risk factor management. Risk factor management can influence how quickly the patient declines and I think at this point, she is an excellent candidate for the assisted living and memory care level. By: 2335 0250 Saroj Boone, /nt
--- NOTE | 2018-12-16 13:30 | NUR ---
PT ARRIVED VIA EMS FROM [facility]. PT STATED SHE WANTED TO COME HERE INSTEAD OF [facility] TO SEE HER DR. JAMISON. PT DENIES ANY SI AT THIS TIME AND ALSO AT [facility]. PT DID CALL DR. KIRT ROBBINS UPSET ABOUT HER APT SHE IS LIVING IN THAT THERE WAS AN ODOR THAT SHE COULD SMELL ALL THE TIME, DRUGS POSS. PT ALSO STATED SHE IS A VERY CLEAN PERSON AND IS STILL CLEANING OUT DOG HAIR FROM [employer] IN APT. SHE SAID SHE GOT INTO A VERBAL DISAGREEMENT WITH THE [facility] AND [facility] CALLED HER A DR. DR. JAMISON CAME IN DURING INTERVIEW AND STATED HIS CONTACT AGENT WAS WORRIED ABOUT HER PHONE CALL. PT TEARFUL STILL OF PASSING AWAY 08/04/11 AND WAS FOR 29 YEARS. SHE ALSO STATED THAT SHE HAD FIVE FAMILY MEMBERS PASS AWAY. PT STATED SHE IS NUMBER 2 OF 17 SIBLINGS AND THERE ARE ONLY HER AND ONE MORE SIBLING LEFT. PT STATED SHE WALKED AWAY FROM A NH A YEAR AGO FROM OTHERS BEING MISTREATED, AND SHE STATED SHE DIDN'T GET HER MEDS THERE THAT SHE PAID FOR. PT SAID SHE HAS HAD X2 LEFT KNEE SURGERY AND X2 RT HIP SURGERY DONE, AND USES A WALKER. SHE SAID SHE WOULD LIKE TO HAVE SOMEONE 2-3 DAYS A WEEK TO HELP WITH HOUSEWORK.
[2018-12-16 15:30] VITALS: BP 141/67
[2018-12-16 19:45] VITALS: BP 147/70
--- NOTE | 2018-12-17 03:53 | NUR ---
ASSUMED CARE OF PT AT 1900HRS. PT WAS SLEEPING AT THE TIME OF ASSESSMENT BUT WAS EASY TO AROUSE. PT COMPLAINED OF SOME BACK PAIN AND WAS TREATED WITH PRN PAIN MEDS. FALL PRECAUTION IN PLACE. PT TOOK MEDS WITH WATER. NO SI IDIATIONS REPORTED. VSS AND NO S/S OF ACUTE DISTRESS. WILL CONTINUE TO MONITOR.
--- NOTE | 2018-12-17 08:10 | EKG ---
[place] [address] [facility] [place] [address] ELECTROCARDIOGRAM REPORT Name: MILA PAZ Room #: 524A-A ADM IN M.R.#: [id number] Admission: 12/16/18 Attend Phys: Saroj Boone DO Discharge: Date of : 32 Report #: [id number] THIS REPORT FOR: //name// [facility] Test Date: 2018-12-16 Test Time: 15:05:22 Pat Name: MILA PAZ Department: Room: [facility] A Gender: F Fondant Machine Operator: Lesley MINOR : 1930 Requested By: Aayush Spears Order Number: [id number] MD: Agutsín Mckeon Measurements Intervals [place] Rate: 56 P: 74 [place]: 140 QRS: -29 QRSD: 145 T: 145 QT: 462 QTc: 446 Interpretive Statements Sinus rhythm Left bundle branch block Compared to ECG 04/14/2017 06:25:05 Ventricular premature complex(es) no longer present Electronically Signed On 12-17-2018 8:10:22 CDT by Agustín Mckeon [email or web address] <ELECTRONICALLY SIGNED> By: Agustín Mckeon MD, [facility] 12/17/18 0810 1505 1505 Agustín Mckeon MD, [facility] /EPI
[2018-12-17 08:49] VITALS: BP 162/63
--- NOTE | 2018-12-17 09:24 | HC ---
[facility] [place] [address] [address] CONSULTATION Name: MILA PAZ Room #: 524A-A ADM IN M.R.#: [id number] Admission: 12/16/18 Attend Phys: Moraima Boone DO Discharge: Date of : 32 Report #: [id number] THIS REPORT FOR: //name// CC: MORAIMA Robles DATE OF SERVICE: 12/16/2018 CHIEF COMPLAINT: "My apartment smells bad." HISTORY OF PRESENT ILLNESS: The patient is an 88-year-old -Emirati female who presented at [facility] Emergency Room on 12/13/2018 with the aforementioned complaint. She was evaluated and had an Accu-Chek. The ER staff did discuss the matter with me and they did not felt like she had any acute problems and she was sent back home. On the day prior to this admission, the patient called doctor's office and wanted to be seen immediately and threatened to hurt herself. With this information, I notified the patient's durable power of document review attorney, her daughter, Louise Jordan, in [facility]. We then called 911 and asked the paramedics to take her to the hospital with psychiatric facilities. She ended up going to [facility] to the Emergency Room there where she was evaluated and monitored. Evidently, her case was discussed with Dr. Boone, the head of the Behavioral Health Unit here at [facility] and she was transferred to this hospital today to the Behavioral Health Unit for further evaluation and treatment. PAST MEDICAL HISTORY: Includes type 2 diabetes mellitus, hypertension, osteoarthritis at multiple sites. She has had right total hip replacement x 2. She has also had a left knee replacement. She has a history of depression and has been on medication throughout the approximate 5 years that I have known her. She was hospitalized in 2017 and eventually went to the [facility] for alf stay. At the insistence of the patient and the 2 of her 3 children who live locally, she returned once again to independent living in an apartment. Most recently, she has been complaining about there being a disagreeable order in her apartment. Although visiting friends were unable to detect that smell, the patient nonetheless insisted that it was there and that there was something unclean going on there. The patient also admitted to feeling very alone and unsafe on her own. I did speak with her daughter Louise Jordan in [facility] again twice on the day of admission and I let her know that she has been admitted at the Behavioral Health Unit at [facility]. The patient does have underlying dementia as well. I believe the severity is mild at least and moderate at worst on any given day. Prolonged QTC. PAST SURGICAL HISTORY: Dilatation and curettage for remote reasons in the past. [facility] [address] [place] [address] CONSULTATION Name: MILA PAZ Room #: 524A-A ADM IN M.R.#: [id number] Admission: 12/16/18 Attend Phys: Moraima Boone DO Discharge: Date of : 32 Report #: [id number] ALLERGIES: She has no known drug allergies. MEDICATIONS: At time of admission includes memantine, pioglitazone, lisinopril, Lexapro, sitagliptin, hydralazine, amlodipine, aspirin, vitamin D3, lisinopril, multivitamin, BuSpar, atorvastatin or simvastatin, Tylenol, and nocturnal trazodone. FAMILY HISTORY: Coronary artery disease in her mother who at 63 years old. Also diabetes SOCIAL HISTORY: She is . She has 3 grown children and the durable power of document review attorney is her daughter, Louise Jordan, who lives in [facility] with her Dawn Jordan. She denies any vices including smoking or use of drugs or excessive use of alcohol. REVIEW OF SYSTEMS: The patient mostly admits to the bad smell that others cannot seem to appreciate or take note of, fatigue, loneliness and decreased mood. PHYSICAL EXAMINATION: Her weight is 77.1 kilograms. VITAL SIGNS: Her vital signs are not yet available. GENERAL: The patient is a very pleasant, loquacious elderly black female who is in no distress. HEENT: Normocephalic, atraumatic. Pupils are equally round and reactive to light, no icterus or injection, sinuses are nontender, oropharynx is moist and pink. Hearing is grossly normal. NECK: Supple, no JVD or thyromegaly or masses or adenopathy noted on exam. LUNGS: Clear to auscultation bilaterally. CARDIOVASCULAR: Regular rhythm without significant murmur, gallop or rub. ABDOMEN: Soft, positive bowel sounds, no visceromegaly or masses or hernias. EXTREMITIES: No cyanosis or clubbing or peripheral edema. Peripheral pulses are diminished in both lower extremities, but easily palpable. Normal pulses in the distal upper extremities are also noted. NEUROLOGIC: Cranial nerves 2-12 are intact. Cranial cerebellar shows no functional motor deficits but gait was not assessed. No Babinski's or Romberg sign noted. There is a stocking distribution of mild sensory deficit. RECTAL AND BREAST EXAM AND PELVIC: Not performed today. SKIN: Shows no evidence of decubitus ulcers or skin infections or any unusual rashes. Medical records from [facility] Emergency Room were referred briefly. ASSESSMENT AND PLAN: 1. Major depression -- I will defer to Dr. Boone with regards to this diagnosis and treatment. It has always been my impression that there is some [facility] [address] [place] [address] CONSULTATION Name: MILA PAZ Room #: 524A-A ADM IN M.R.#: [id number] Admission: 12/16/18 Attend Phys: Moraima Boone, DO Discharge: Date of : 32 Report #: [id number] sign of hypomanic or even bipolar depression. 2. Olfactory hallucination? -- we will defer to Dr. Boone's recommendations about this at this time. 3. History of prolonged QT interval -- EKG ordered. This may have an effect on the choice of medications for this patient. 4. Type 2 diabetes mellitus -- we will continue on oral medications and add sliding scale insulin for the time being and we will check Accu-Cheks before meals. 5. Hypertension. We will monitor and treat accordingly with a goal of keeping the systolic blood pressure at or below 140 mmHg. 6. I have spoken with the patient's durable power of document review attorney and she told me that she plans to be coming in the [place] in the very near future to help move the patient out of her current apartment. In speaking with her, she made it clear that family members living locally convinced her to leave the retirement, but the durable power of document review attorney herself never felt that that was a good idea and still does not feel that it was a good idea. In general, I concur with her assessment. I will discuss the matter further with Dr. Boone as the clinical presentation for this admission develops. <ELECTRONICALLY SIGNED> By: Aayush Spears MD 12/17/18 0924 [id number] Aayush Spears MD /nt
[2018-12-17 10:25] VITALS: BP 162/63
--- NOTE | 2018-12-17 10:42 | NUR ---
ASSUMED CARE AT 0700 THIS MORNING. PT. AWAKE AND ALERT. SITTING IN THE DINING ROOM FOR BREAKFAST. SHE IS SITTING QUIETLY. TOOK MEDICATIONS WHOLE AND WITHOUT DIFFICUTLY. ANSWERED QUESTIONS APPROPRIATELY. DENIES SI/HI AT THIS TIME. NO S/S AVH NOTED AT THIS TIME. WAS ON THE UNIT FOR GROUP THIS MORNING. ATE BREAKFAST WELL.
--- NOTE | 2018-12-17 11:09 | NUR ---
PSYCHOSOCIAL ASSESSMENT Diagnosis: BIPOLAR DISORDER Admit Date: 12/16/18 Psychiatrist: PETER Symptoms associated with current admission: Suicidal ideation/attempt Depressed mood Anxiety/panic Presenting problems: Pt stated that she was upset concerning her apartment, and with life. Pt felt that she may hurt herself. Precipitating Factors: Non-compliance psychothx Comments: History of High Risk Behavors: Hx of self harm Suicide Risk Factors: B A-Signs of alcohol/substance abuse w/ suicide ideation B-Recent suicidal thoughts or attempts C-Recent thoughts or attempts of harming someone else D-Altered mental status due to psychiatric/chem dep etiology E-The behavior exists - add comment PSYCHIATRIC HISTORY Age of onset: 88 Prior hospitalizations: 1-2 times hospitalized Hospital names and dates, if available: [facility] Most Recent Outpatient HX: Denies prior OP services Additional information: Legal Status: DPOA Guardian/Conservatorship type: DPOA Contact name: Louise Julian Contact phone: Other: Name: Phone: Other legal issues: (Arrests/convictions Current Status) None P.O. Name and Phone #: FAMILY HISTORY Place of : [place], [place] Raised in: [place] # Siblings & order: Pt has 17 sibilings, 9th child Describe relationships within family of origin: Pt stated that she was close with her sibilings she stated that there only one sibiling living the other has . Any psychiatric or substance abuse problems within family of origin: Y Has patient been sexually or physically abused, neglected or been taken advantage of financially? N Has the abuse been reported? N Other pertinent family information: Marital history/significant relationships: Domestic violence: N Children ages & who is caring for them: Pt has three adult children. Is child welfare involved? N Drug history: None Alcohol Use: Frequency: Quantity: Have you ever felt you ought to Cut down on drinking? Have people Annoyed you by criticizing your drinking? Have you ever felt bad or Guilty about your drinking? Have you ever had a drink first thing in the morning to steady your nerves/get rid of a hangover([employer] worker) CAGE TOTAL 0 If CAGE score is 3 or more, notify provider for withdrawal orders! AXIS SCREENING TOOL [place] I Mood Disorders: Depression [place] II Personality/Mental Retardation: [place] III Medical Impairment: DM HTN Alzheimer's Arthritis [place] IV Problem(s) with: Health care services Economic/Financial Issues Other psych/environ prob [place] V: 60-Moderate w/difficulty Additional [place] comments: PERSONAL BACKGROUND Relevant cultural issues (ethnicity, values, beliefs, spiritual): Spirituality Orthodox: Tenriism Importance of mandaen to patient: High What hobbies/interests does the patient have? Shop Watch tv read books, and news paper Sexual orientation (relevant impact to current treatment): Heterosexual : Where did you serve: Branch of service: Rank: Discharge status: Are you a combat ? Occupational/Work: Do you work? N Do you want to work? N How many hours do you work/week? 0 How many jobs have you had in the past 5 years? 0 Do you need assistance finding a job? N Does the patient need assistance in job training? N Source of income: SSA Does patient have a Payee? Y Payee name: Louise rivera Approximate monthly income: 1000 Does patient have adequate funds for next 30 days? Y Education background: Bachelor degree Highest grade completed: 12th grade Other Educational/training programs: Functional deficits: Explain functional deficits: Current living situation: House/apartment Address/phone where pt. is living: Pt lives at home by herself Does the patient plan to continue there after DC? Yes Patient lives with: Alone Will family/significant other be involved in treatment? Other community support services utilized: Pt will need a SLUMS and potential need a memory care setting Support System Available (family/friend) Name: Louise Rivera Phone: Relationship: Daughter Name: Remington Maldonado Phone: Relationship: Daughter Name: Jorge Luis Sinha Phone: Relationship: Son Patient strengths: Family support Motivated Ins[employer] Community support Education Patient's assets: Good self care Verbal Positive support system Patient's weaknesses: Health problems Chronic hx mental illness Poor social skills Additional weaknesses: Pt stated that she feels lonely sometimes, and want to give up on life. Pt stated that she wanted to harm herslef. Patient's perception of current social services coordinator/case management needs: Pt stated that CM is someone that helps with care PRELIMINARY DISCHARGE PLAN Discharge plan/Community resource contacts: Pt stated that she would like to stay in her apartment. Discharge needs: Pt will need to be transported home. Pt will need a psychiatrist fro continuance care. Problems anticipated on discharge: Compliance w/ med regimen Comments: (factors affecting DC plan/pt. response/interventions) SW will refer pt to a psychiatrist, and assist with transportation.
[2018-12-17 20:07] VITALS: BP 156/88
--- NOTE | 2018-12-17 22:25 | NUR ---
RECEIVED REPORT FROM OFFGOING DAY NURSE, ASSUMED CARE @ 19:15. COOPERATED WITH ASSESSMENT IN THE DAY ROOM. ALERT AND ORIENTED X4. TOOK HS MEDS WHOLE WITH WATER. AWAKENED @ 22:15 AND CRIED OUT LOUDLY. REPORTS THAT SHE SAW SOMETHING UNDER HER BED THAT FRIGHTENED HER, AND SHE IS WORRIED ABOUT HER ROOM MATE.
[2018-12-18 02:10] LABS: GLYCOHEMOGLOBIN (HGB A1C) 7.3 % (4.8-5.6)
--- NOTE | 2018-12-18 05:53 | NUR ---
SLEPT 8.9 HOURS OVERNIGHT.
[2018-12-18 08:13] VITALS: BP 146/87
--- NOTE | 2018-12-18 10:33 | NUR ---
ASSUMED CARE OF PT AT 0700. ASSESSMENT CHARTED. A&0,X4. DENIES PAIN. NO SOA OR CHEST PAIN. PT TOOK ALL AM MEDS ORDERED, NO PROBLEMS NOTED. PT VERY COOPERATIVE WITH CARE. C/O HER ROOMMATE OVERNIGHT. UP WITH WALKER. WILL CONTINUE TO MONITOR FREQUENTLY.
[2018-12-18 21:09] VITALS: BP 150/62
--- NOTE | 2018-12-19 02:32 | NUR ---
RECEIVED REPORT FROM OFFGOING NURSE, ASSUMED CARE @ 19:15. SITTING IN THE DAY ROOM, WATCHING TV AND SOCIALIZING WITH PEERS. AMBULATES WITH WALKER. TOOK MEDS WHOLE WITH WATER. PLEASANT AFFECT AND COMPLIANT WITH CARE. REPORTS THAT THE ONE TIME MEDS THAT SHE TOOK LAST NIGHT (2MG HALDOL) HELPED HER SLEEP. ORDER OBTAINED AT PATIENTS REQUEST FOR 2 MG HALDOL PRN AGITATION AND PSYCHOSIS Q4HOUR. HAS BEEN SLEEPING SOUNDLY TO THIS WRITING, WILL CONTINUE TO MONITOR Q 12 MINUTES. BED IN LOW POSITION, ALARM SET.
[2018-12-19 03:04] VITALS: BP 150/62
[2018-12-19 09:34] VITALS: BP 149/69
[2018-12-19 16:23] VITALS: BP 149/69
--- NOTE | 2018-12-19 16:32 | NUR ---
IN DINNING ROOM ALL DAY VISITING WITH OTHER PATIENTS. MOOD LABILE GOES FROM LOUD LAUGHING TO CRYING. GOOD APPETITE FOR MEALS AND FEEDS SELF. ACCUCHECKS BEFORE MEALS WITH COVERAGE WITH SLIDING SCALE. SUSPICIOUS OF MEDICATIONS BUT TOOK PILLS WHOLE. AMBULATES WITH SLOW STEADY GAIT. SPEECH CLEAR. PLEASANT AND COOOPERTIVE.
[2018-12-19 21:19] VITALS: BP 151/69
--- NOTE | 2018-12-20 03:24 | NUR ---
PATIENT ALERT AND ORIENTED TO SELF AND WHERE HER ROOM IS. COOPERATIVE WITH MEDICATION, HOWEVER, ASKING WHAT IT WAS AND WHAT IT WAS FOR. BLOOD SUGAR MONITORED PER ORDER. UP WITH WALKER BACK TO ROOM AND PUT HERSELF TO BED. SLEEPING THROUGHOUT THE NIGHT. WILL MONITOR.
[2018-12-20 09:24] VITALS: BP 162/79
--- NOTE | 2018-12-20 10:26 | H ---
[facility] [place] [address] HISTORY AND PHYSICAL Name: MILA PAZ Room #: 524A-A ADM IN M.R.#: [id number] Admission: 12/16/18 Attend Phys: Saroj Boone DO Discharge: Date of : 32 Report #: [id number] THIS REPORT FOR: //name// CC: Saroj Spears DATE OF SERVICE: 12/17/2018 INPATIENT PSYCHIATRIC EVALUATION ATTENDING PSYCHIATRIST: Saroj Boone DO. STROKE PROGRAM COORDINATOR: Aayush Spears MD. REASON FOR ADMISSION: Referred from [facility] Emergency Room due to suicidal ideation, also primary care physician who co-incidentally is Dr. Spears had a concern for progressive neurodegenerative disorder with the patient. HISTORY OF PRESENT ILLNESS: This is an 88-year-old black female residing in an apartment on [address] in [place], [place]. The patient reports she summoned EMS due to being confused and having concerns about her living environment namely was unkempt, unclean, neighbors noisy, neighbors using illicit drugs and such as that. Dr. Spears further clarified that the patient had an Emergency Room visit roughly on 12/13/2018 for the state of concerns about the unkempt, physical grounds of the apartment building and the neighbors and such and that yesterday the patient had called into his office, spoke to his chief quality officer, made a threat of suicide and that is what summoned Emergency Medical Services. The patient admits she could have made the statement of intending to harm herself. On interview with the patient, she states she has been retired since 1997, had lived her adult life in [place]. She has 3 children, only one who is local that daughter's name is Remington, left a voicemail for Remington, I have not heard back yet. The patient reports she gets along okay aside from the above-mentioned problems, with her building. She admits that she was diagnosed some years ago by Dr. Yuan with mild dementia. The patient had been 12 years. PAST MEDICAL HISTORY: Includes coronary artery disease, status post bypass. She has had 2 knee operations on her left leg including a knee replacement. Additional information from past charting, she has type 2 diabetes mellitus, hypertension, hyperlipidemia. ADDITIONAL SURGICAL HISTORY: Hysterectomy. She had a right hip replacement with need for revision for ortho, so I am not sure she is confused about her left or right hip or not. [address] [address] HISTORY AND PHYSICAL Name: MILA PAZ Room #: 524A-A ADM IN [facility]#: [id number] Admission: 12/16/18 Attend Phys: Saroj Boone DO Discharge: Date of : 32 Report #: [id number] HOME MEDICATIONS: Memantine 10 mg twice daily, pioglitazone (Actos) 45 mg daily, simvastatin 20 mg daily, lisinopril 10 mg daily. Escitalopram 10 mg daily, which she discontinued due to possible concern for marcelina, which I do not believe she has at this point. She takes sitagliptin, Januvia 100 mg daily, I believe that is non-formulary here and hydralazine 50 mg daily. ALLERGIES: No known allergies. Denied smoking tobacco, alcohol, drug use history. REVIEW OF SYSTEMS: From ER visit to my evaluation: CONSTITUTIONAL: Negative for fever or chills. EYES: Negative for eye pain or visual change. HENT: Negative for rhinorrhea or sore throat. RESPIRATORY: Negative for cough or shortness of breath. CARDIOVASCULAR: Negative for chest pain or palpitations. GASTROINTESTINAL: Negative for abdominal pain, vomiting or diarrhea. GENITOURINARY: Negative for urgency, burning, frequency or hematuria. MUSCULOSKELETAL: Negative for back pain or muscle pain. SKIN: Negative for any rashes. NEUROLOGICAL: Negative for numbness, tingling or weakness. ENDOCRINE: Negative for diabetes and hypothyroidism. HEMATOLOGIC: Negative for easy bruising or bleeding. A 10-point review of systems otherwise denied. PHYSICAL EXAMINATION: The patient is ambulatory with a rolling walker, so she does use an assistive device. She denies history of seizures, head injuries. Denies history of service. Denies history of physical, sexual, or emotional abuse. She was born in [place], [place]. She had 17 siblings, only one is left, which she becomes tearful about. She denies family history of dementia. On cognitive exam, I performed [facility] Mental Status Examination, she scored 17/30. Deficits included 2 for 3 for orientation, 1 for 3 for verbal fluency, 3 for 5 for delayed recall, 2 for 4 for executive function, which is the clock drawing and 2 for 8 which was acute memory. Recall, I have asked that occupational therapy first perform the common evaluation of living skills. EDUCATIONAL HISTORY: Bachelor's degree and some credit hours towards a master's degree. ADDITIONAL INFORMATION: The patient's TSH is 0.837. CBC, CMP, urinalysis, urine drug screen were done at [facility], those were grossly normal. [facility] [address] [place] [address] HISTORY AND PHYSICAL Name: MILA PAZ Room #: 524A-A ADM IN .Karen.#: [id number] Admission: 12/16/18 Attend Phys: Saroj Boone, DO Discharge: Date of : 32 Report #: [id number] CURRENT MEDICATIONS IN THE HOSPITAL: Pioglitazone 45 mg daily, lisinopril 10 mg p.o. daily, hydralazine 50 mg p.o. daily, atorvastatin 20 mg daily, memantine 10 mg twice a day. I discontinued the Lexapro, looks like she is on sliding scale insulin and Tylenol p.r.n. It looks like her last labs were from 04/2017. Her B12 level was 1170. Folate was normal. I think we will go ahead and put her on some vitamin D, which would not hurt; unlikely those will make a big difference. MENTAL STATUS EXAMINATION: This is a well-developed, black female wearing glasses, but disheveled. Attention intact. Concentration fair. Speech is normal in rate, volume and tone. Thought process is linear and goal directed. Thought content, focused on the present. No psychomotor agitation, no psychomotor retardation. Mood and affect congruent and euthymic, bright range except relatives. Denied SI or HI. Denied hopelessness, Denied hopelessness, denied suicidal or homicidal intent or plan. Memory formally tested impaired as previously described. Insight limited. Judgment limited. Fund of knowledge, no greater than average. ASSESSMENT: An 88-year-old black female presenting initially with concern of marcelina looking like a functional decline in setting of dementia. DIAGNOSES: At this time, unspecified depression, major neurocognitive disorder, likely due to Alzheimer's disease. Numerous medical comorbidities including hypertension, hyperlipidemia. PLAN: Evaluate, stabilize. Obtain collateral. BINDU done by OT. Voicemail left for her daughter. We will plan on a family meeting. At this moment, the patient does not have a DPOA, likely the patient will not be safe to discharge back to independent living, so placement is going to be necessary. Hopefully, not a guardianship. STRENGTHS: She is insured. She has some supportive family. WEAKNESSES: Advanced age, neurodegenerative picture. Time spent on interview, evaluation, review of records, coordination of care is approximately 60 minutes. <ELECTRONICALLY SIGNED> By: Saroj Boone DO 12/20/18 1026 [id number] Saroj Boone DO /nt
--- NOTE | 2018-12-20 11:13 | NUR ---
SW left a voicemail for pt daughter concerning a family. LIVIER provided contact information in requested a call back. LIVIER will follow-up with pt family.
--- NOTE | 2018-12-20 15:35 | NUR ---
AAOX4 PLEASANT AND COOPERTIVE. MOOD MORE STABLE TODAY THAN YESTERDAY. IN DINNING ROOM ALL SHIFT PLAYING CARDS AND VISITING WITH OTHER PATIENTS. GOOD APPETITE. DENIES PAIN. JOKING AND LAUGHING WITH OTHERS. CONTINENT OF B & B.
--- NOTE | 2018-12-20 19:54 | NUR ---
RECEIVED REPORT FROM OFFGOING NURSE, ASSUMED CARE @ 19:15. SITTING IN THE DAY ROOM SOCIALIZING WITH PEERS AND WATCHING TV. COOPERATED WITH ASSESSMENT. A&OX3-4. HRRR, LUNGS CTA, ABD NORMOACTIVE X 4 Q, REPORTS LARGE BM TODAY. WILL CONTINUE ROUNDING Q 12 MINUTES FOR PATIENT SAFETY.
[2018-12-20 21:21] VITALS: BP 131/59
--- NOTE | 2018-12-20 22:45 | NUR ---
TOOK MEDS WHOLE WITH WATER. RETIRED TO BED AND IS ASLEEP A THIS WRITING. BED IN LOW POSITION, ALARM SET, WILL CONTINUE TO MONITOR Q 12 MINUTES FOR PATIENT SAFETY.
[2018-12-20 22:47] VITALS: BP 131/59
--- NOTE | 2018-12-21 06:26 | NUR ---
SLEPT WELL OVERNIGHT FOR A TOTAL OF 7.6 HOURS.
--- NOTE | 2018-12-21 08:04 | NUR ---
[employer] brought patients breakfast tray to her this am. Patient stated, "thank you hun, but if I am rude today, it is because of the food." [employer] asked patient to clarify further. Pt stated that the hospital needed to get a new cook or caterer as she does not like the food. [employer] reminded pt that the menu is discussed each day in morning group, and the pt is encouraged to order off of an alternate menu if she does not find the meal appealing. [employer] will assist pt with this today.
[2018-12-21 08:42] VITALS: BP 153/104
--- NOTE | 2018-12-21 11:07 | NUR ---
LIVIER spoke with pt daughter Remington concerning family meeting. SW schedule the appointment on tomorrow, December 21, 2018 at 1400. Pt daughter mention that she would like Dr. Spears to be at this meeting. SW mention that she will informed Dr. Boone of the request.
--- NOTE | 2018-12-21 11:27 | NUR ---
LIVIER left a voicemail for Remington concerning her request of Dr. Spears been present at the meeting. Dr. Spears mention that he is only available today, December 21, 2018. LIVIER provided contact information and requested a call back.
--- NOTE | 2018-12-21 15:17 | NUR ---
Assumed care of pt at 0700. Pt appears to be in a good mood. Participating in group. Acting suspicious when medications are handed to her to take. Follows directions. Friendly with other patients in the dining room. Q12m rounding.
--- NOTE | 2018-12-21 17:07 | NUR ---
LIVIER and Dr. Boone met with pt concerning d/c into a NF. Dr. Boone mention that pt is suffereing Major Neurocognitive Disorder in will need a placement due to her not being safe at home. LIVIER spoke with the family about the importance of Medicaid. Pt daughter mention her mother was enrolling into Medicaid before been admitted into the hospital. Medicaid has sent a letter requesting her bank statements. Remington mention that she is going finish the enrollment. LIVIER mention that she will follow-up with [employer] to assist with Medicaid. LIVIER provided a list of Assisted living NF with memory care. LIVIER will follow-up with pt family.
[2018-12-21 19:54] VITALS: BP 137/58
--- NOTE | 2018-12-21 23:13 | NUR ---
RECEIVED REPORT FROM [facility] DAY NURSE, ASSUMED CARE @ 19:15. SITTING IN THE DAY ROOM SOCIALIZING WITH PEERS, WATCHING TV. COOPERATED WITH ASSESSMENT, HRRR, LUNGS CTA, ABD NORMOACTIVE X 4 Q, REPORTS BM TODAY. A&OX 3-4. ASKED FOR NAMES OF MEDICATIONS, WHEN EDUCATION WAS PROVIDED, TOOK MEDS COOPERATIVELY WHOLE WITH WATER. PRN TYLENOL 650 PROVIDED FOR GENERAL PAIN AND HALDOL 2 MG PROVIDED FOR HALLUCINATIONS AT PATIENTS REQUEST. ASKED WHEN SHE WILL BE DISCHARGING. EDUCATION PROVIDED THAT WHEN SHE SEES THE DOCTOR TOMORROW MORNING, HE CAN PROVIDE THAT INFORMATION. RETIRED TO BED AT 2200, EYES CLOSED, RESPIRATIONS EVEN AND UNLABORED. WILL CONTINUE TO MONITOR Q 12 MINUTES FOR PATIENT SAFETY.
[2018-12-21 23:20] VITALS: BP 137/58
--- NOTE | 2018-12-22 06:44 | NUR ---
SLEPT 8 HOURS OVERNIGHT.
[2018-12-22 07:30] VITALS: BP 134/67
--- NOTE | 2018-12-22 14:14 | NUR ---
Date of Admission: 12/16/18 Date of Activity Therapy Assessment: 12/19/18 Activity Goal: Increase independence in leisure planning and awareness Initial Goal: 2 Group activities/day Weekly progress towards goal: Achieving current goals Group participation level: Full Behaviors observed: Patient shows consistent attendance in daily groups and participates to maximum ability. Patient is friendly and pleasant towards peers and has not exhibited any negative behaviors. Plan: No change towards goal
--- NOTE | 2018-12-22 15:17 | NUR ---
Assumed care at 0700, she is up in the dayroom, no complaints, she is sitting waiting for breakfast with her 2 peers she always sits and socializes with, she is alert and oriented x3, compliant with medications, she denies pain, denies SI/HI and AVH. She does ask what and why she is needing the medications, redirected and educated on meds.
[2018-12-22 19:50] VITALS: BP 153/68
[2018-12-23 00:59] VITALS: BP 153/68
--- NOTE | 2018-12-23 05:48 | NUR ---
Bernie was socialable in the evening in the common area with peers and staff, smiling often. She was alert and oriented x 2-3, compliant with HS medication asking questions about where he morning pills were though. She had a bright affect and ambulated without difficulty with the walker at times in the night as staff observed for safety.
[2018-12-23 09:17] VITALS: BP 149/96
--- NOTE | 2018-12-23 11:04 | NUR ---
Spoke to daughter Bita Jordan, CHINO and requested a copy of CHINO be faxed to us today. Ms. Jordan agreed to do so. Ms. Jordan's # is [phone] There is a 2 hour time difference as she lives in [facility].
--- NOTE | 2018-12-23 15:07 | NUR ---
0715: Report rec from [facility] shift, care assumed. [id number]: Ambulatory with walker in halls and to DR, gait steady. Feeds self, appetite good, takes meds whole w/o difficulty, denies pain or discomfort at this time.Per SS Insulin, no insulin indicated, accu-check 122. Attends 0900 therapy group, participates 100%, mood is cheerful and cooperative.
--- NOTE | 2018-12-23 15:53 | NUR ---
LIVIER and Dr. Lopez spoke with pt daughter Remington concerning pt mental health, and prison placement. Remington mention that she has not seen any of the recommendation by LIVIER but will go view on Friday, and Friday. LIVIER referred Remington to [facility], [facility], [facility], [facility], and [facility]. Remington mention that she would like for her to find placement where Dr. Spears attend. LIVIER mention that above nursing facilities Dr. Spears does attend. Dr. Boone mention that we need the DPOA documentation from the daughter Letha. LIVIER provided the fax number to [facility]. LIVIER mention we need to find placement by January 02, 2019. LIVIER will follow-up with the pt.
[2018-12-23 21:01] VITALS: BP 123/59
[2018-12-24 02:01] VITALS: BP 123/59
--- NOTE | 2018-12-24 05:05 | NUR ---
PATIENT WAS UP IN DAYROOM TILL ABOUT 2100 LAST NIGHT. SHE VISITED WITH ANOTHER FEMALE PATIENT TILL THEN. SHE WAS COOPERATIVE AND PLEASANT. NO BEHAVIORS. SHE HAS SLEPT THRU NIGHT WITHOUT INCIDENT.
[2018-12-24 08:00] VITALS: BP 147/71
--- NOTE | 2018-12-24 16:38 | NUR ---
SW sent the referrals per weekday SW request.
[2018-12-24 21:40] VITALS: BP 133/52
--- NOTE | 2018-12-24 22:10 | NUR ---
PT COMPLIANT WITH MEDICATIONS. PT HAD ARGUMENT WITH DAUGHTER ON THE PHONE AND STATED SHE DID NOT WANT ANY OTHER PHONE CALLS TONIGHT. PT ASKED FOR MARILEE RUCKER RECTIFYING ATTENDANT PHONE NUMBER AND [facility] NUMBER. PT AMBULATING WITH WALKER STEADY GAIT, GOOD EYE CONTACT, BLUNTED AFFECT.
[2018-12-25 09:00] VITALS: BP 118/61
[2018-12-25 09:07] VITALS: BP 118/61
--- NOTE | 2018-12-25 09:40 | NUR ---
PT ALERT TO SELF AND PLACE AND MONTH. PT DENIES ANY PAIN AT THIS TIME. PT LUNG CLEAR. PT UP WITH WALKER. PT HAS STEADY GAIT. PT COOROPERATIVE WITH MEDS AND TREATMENT.
[2018-12-25] MEDS ORDERED: ASPIR 8181 M1 PO (11:41)
--- NOTE | 2018-12-25 12:06 | NUR ---
SW spoke with pt's dght and she reported that she was busy today looking for NH and would call when she has chosen one.
--- NOTE | 2018-12-25 14:00 | NUR ---
Assess due to length of stay. Pt admit to H unit, alzheimers. Hx diabetes, htn. Intake has been variable 10-80% past few day. Carb control diet order, BG 80-157. In group therapy, so not able to interview at this time. Chart reviewed, wts down about 2 lb from admit wt so will add glucerna shake 1x daily to make up for caloric deficit from pts alternating po intake. Low nutrition risk otherwise
[2018-12-25 19:22] VITALS: BP 138/58
--- NOTE | 2018-12-25 22:50 | NUR ---
Care assumed of patient at 1915: Patient alert and oriented x3. Patient disoriented to time. Patient calm, pleasant and cooperative. Patient denies SI/HI/AH/VH. No s/s of delusional or paranoia behaviors. Patient declined HS supplement of Glucerna. Patient retired to bed earlier than usual for her. Patient denies pain or discomfort. Patient took medication whole without difficulty. Patient smiling and interactive with staff and peers. Patient resting quietly in bed at this time.
[2018-12-26 08:37] VITALS: BP 175/84
--- NOTE | 2018-12-26 09:31 | NUR ---
0700: Report from noc shift, care assumed. Sleeping in bed, no distress. [id number]: Ambulatory in room, uses walker for stability, gait steady/safe. Feeds self a.m. meal, appetite good, consumed 100%, drank 100% of glucerna, denies nausea, takes meds w/o difficulty. Pleasant mood, cooperative with staff.
[2018-12-26 17:57] VITALS: BP 120/50
[2018-12-26 19:52] VITALS: BP 111/78
--- NOTE | 2018-12-26 23:09 | NUR ---
Care assumed of patient at 1915: Patient alert and oriented x3, disoriented to time. Patient calm and cooperative at times. However, patient has been more irritable and demanding this evening. Patient having multiple complaints and requests this shift. Patient reported anxiety to another nurse, when this nurse approached her, she denied anxiety. Same reports occurred regarding pain. When this nurse approached her, patient denies pain or discomfort. Patient then reported that she is "having issues" with her eyes. Denies pain, itching or burning. No redness or swelling observed. Patient stated that she needed drops or the "little red pill" for her eyes. Patient reports that she is older and should be having trouble with her eyes because that is what happens when you get old. Patient difficult to re-direct. Dr. Boone notified of said request and order was obtained for natural tear eye drops PRN. Patient grateful of order but now states that she doesn't need them. Patient enjoyed watching football with peers. Became agitated when offered sugar free snack. Patient provided peanut butter and crackers and ate 100%. Patient stated she was dizzy at approximately 2200. Patient said that she was probably dizzy because it was too cold.
[2018-12-27 09:12] VITALS: BP 157/73
--- NOTE | 2018-12-27 10:58 | NUR ---
ASSUMED CARE OF PT AT 0740. PT IS A&O TO SELF. IS STABLE. IS ON ROOM AIR. IS PLEASANT. DENIES PAIN. IS UP ADLIB WITH WALKER. FALL PRECAUTIONS & HOURLY ROUNDING CONTINUED THIS SHIFT. LABS & VITALS REVIEWED. PT IS IN DINNING ROOM PLAYING CARDS WITH OTHER PATIENTS. FREQUENT CHECKS. WILL CONTNUE TO MONITOR.
[2018-12-27 20:13] VITALS: BP 115/53
[2018-12-27 22:48] VITALS: BP 115/53
--- NOTE | 2018-12-28 00:50 | NUR ---
PATIENT SAT UP IN MAIN DINING ROOM TONIGHT UNTIL SHE HAD EVENING MEDS AND THEN WENT TO BED AROUND 0. PATIENT WITHOUT COMPLAINT OF PAIN. SHE IS SUBDUED TONIGHT AND QUIET. DENIES PAIN. SHE DID ASK FOR HALDOL TONIGHT BECAUSE SHE FEELS IT HELPS HER TO SLEEP THRU THE NIGHT BETTER. NO BEHAVIORS. CONTINUING TO MONITOR.
[2018-12-28 09:40] VITALS: BP 142/71
--- NOTE | 2018-12-28 13:58 | NUR ---
PATIENT IN DINING BROWN SOCIALIZING WITH STAFF AND PATIENTS THIS SHIFT. PARTICIPATING IN GROUPS. DENIES THOUGHTS OF HARMING SELF OR OTHERS. COMPLIANT WITH MEDICATION. STATES THAT SHE WANTS TO RELAX AND ENJOY THE DAY TODAY.
--- NOTE | 2018-12-28 16:58 | NUR ---
SW spoke with pt daughter concerning pt been accepted into [facility]. SW was told that will need to be accepted into rehab, and then transferred to LTC placement. SW mention that she will need to speak with doctor concerning family requested.
[2018-12-28 19:57] VITALS: BP 127/55
--- NOTE | 2018-12-28 22:17 | NUR ---
PATIENT HAD PHONE PRIVILEDGE WAS REVOKED FOR REST OF DAY ON DAY SHIFT D/T AN INCIDENT WITH PHONE AND ANOTHER PATIENT. SHE ASKED TO USE THE PHONE ON C [address]IP[place] AND WHEN SHE WAS TOLD SHE COULDN'T SHE BECAME ANGRY AND CRYING AND SAYING THAT THE STAFF WAS TREATING HER BADLY. SHE WENT ON TO ASK FOR ICE CREAM FOR A SNACK AND AGREED TO [employer] THAT WAS CHILLED FOR HER IN [employer]ZER SINCE SHE WAS A DIABETIC. WHEN THEY GAVE HER THE [employer]ING SHE WAS MAD BECAUSE SHE WANTED ICECREAM AND DID NOT WANT ANY SUGAR FREE SNACK. SHE THEN WENT ON COMPLAINING AROUND OTHER PATIENTS IN THE DAYROOM AREA, STATING HOW "BAD THIS HOSPITAL IS" AND THE "STAFF TREATS HER MEAN." I WAS ABLE TO REDIRECT HER WHEN I WENT TO GIVE HER HER HS MEDS AND FURTHER ASSESS HER. SHE THEN TRIED TO MANIPULATE AND SWEET TALK ME IN TO LETTING HER CALL HER DAUGHTER. SHE BEGAN CRYING AND SOBBING THAT SHE WAS BEING TREATED BADLY. I ASKED HER IF SHE KNEW WHY SHE WAS TOLD SHE COULD NOT CALL HER DAUGHTER LIBIA AND SHE WAS ABLE TO TELL ME THAT SHE HAD LOANED THE PHONE TO ANOTHER RESIDENT. I EXPLAINED THAT SHE HAD BROKEN THE RULE AND THE PHONE COULD NOT BE SHARE BY OTHERS WITHOUT NURSE/DR APPROVAL. SHE STATES, " I DON'T CARE. RULES WERE MADE TO BE BROKEN AND IF I WANT TO GIVE THE PHONE TO ANOTHER PATIENT TO USE I WILL." SHE CONTINUED SOBBING AND 3 DIFFERENT TIMES SHE WANTED ME TO CHECK HER HEART RATE. HER GLUCOSE WAS 137. HER HR WAS 70 TO 100 DEPENDING ON HOW HARD SHE WAS CRYING. HER ROOM MATE HAD TALKED WITH HER AND TRIED TO CALM HER. I EXPLAINED THAT NO ONE WAS MAD AT HER BUT WE HAVE RULES THAT NEED TO BE FOLLOWED TO PROTECT THE PATIENT AND OTHERS. I EXPLAINED THAT SOME GOOD SLEEP SHOULD HELP HER FEEL BETTER TOMORROW AND SHE CAN CALL HER DAUGHTER TOMORROW IF SHE'S FEELING BETTER. TUCKED PATIENT IN TO BED AND SHE THANKED ME FOR BEING NICE AND SHE QUIETLY CRIED HERSELF OFF TO SLEEP. HALDOL PRN WAS GIVEN TO HER WITH HS MEDS D/T THE ACTING OUT. ASSISTED PATIENT TO BATHROOM WITH WALKER AND RESET BED ALARM BEFORE LEAVING THE ROOM. PATIENT IS NOW SLEEPING. I SPENT 30 MINUTES JUST TALKING WITH HER AND THERAPEUTICALLY LISTENING AND CONSOLING HER. TRIED REDIRECTING THE CONVERSATION IN THE ROOM WITHOUT SUCCESS. PATIENT HUNG UP ON FACT THAT FEELINGS WERE HURT WHEN PHONE CALL WAS NOT ALLOWED. CONTINUING TO MONITOR.
[2018-12-28 23:51] VITALS: BP 127/55
--- NOTE | 2018-12-29 01:40 | NUR ---
PATIENT BED ALARM WENT OFF. WENT TO ASSIST PATIENT TO THE RESTROOM WITH WALKER. SHE STATES SHE IS FEELING GROGGY AND HER RIGHT HIP IS HURTING. STATES THE PAIN IS 5/10. PATIENT CONTINUES TO BE WEEPY. TYLENOL 650MG GIVEN FOR PAIN AND CHECKED PATIENT'S GLUCOSE AND IS AT 104. PATIENT HAD HALDOL PRN AT HS. PATIENT WALKED BACK TO BED WITH WALKER AND I STOOD STANDBY ASSIST AND SHE SAID SHE WAS FINE AND SHE DIDN'T NEED ANY HELP. SHE THANKED ME FOR HELPING HER AND GETTING HER SOME MEDICATION. PATIENT BACK TO BED AND BED ALARM RESET AND BED IN LOW POSITION. WILL CONTINUE TO MONITOR. PATIENT STATES THE RIGHT HIP HAD BEEN OPERATED ON SOMETIME BACK AND ACTS UP SOMETIMES.
--- NOTE | 2018-12-29 04:02 | NUR ---
PATIENT HAS BEEN SLEEPING SINCE TYLENOL GIVEN FOR HER RIGHT HIP PAIN. PATIENT AWOKE JUST NOW ROOM MATE'S BED ALARM WENT OFF. ASKED PATIENT IF HER RIGHT HIP WAS STILL HURTING OR IF SHE HAS ANY PAIN. SHE STATES THAT THE PAIN IS GONE AND SHE IS SLEEPING GOOD. SHE IS NOT WEEPY. SHE THANKED ME FOR ASKING. PATIENT COMFORTABLE AND NO SIGNS OF HYPOGLYCEMIA. PATIENT GOING BACK TO SLEEP.
--- NOTE | 2018-12-29 10:23 | NUR ---
0700: Report rec from noc shift, care assumed. [id number]: Ambulatory in room, weir and to DR, uses walker for assist. Alert, oriented to name, place and year, cheerful mood, cooperative with staff. Feeds self, appeitite good, takes meds whole w/o difficulty. Attended 0900 therapy group, 100% participation.
--- NOTE | 2018-12-29 10:59 | NUR ---
LIVIER left a voicemail for Rodriguez at [facility] concerning admission. LIVIER provided contact information and requested a call back.
--- NOTE | 2018-12-29 12:56 | NUR ---
Date of Admission: 12/16/18 Date of Activity Therapy Assessment: 12/19/18 Activity Goal: Increase independence in leisure planning and awareness Initial Goal: 2 Group activities/day Weekly progress towards goal: On track Group participation level: Full Behaviors observed: Patient is consistently participating in groups and participates to maximum ability. Patient exhibits poor social boundaries at times, often becoming involved in others concerns and can become demanding during these times. She is easily redirectable, but exhibits strong emotions. Plan: No change towards goal
[2018-12-29 16:22] VITALS: BP 136/69
--- NOTE | 2018-12-29 16:45 | NUR ---
LIVIER spoke with Janett from [facility] in patient will need DA-124 due to her recent diagnosis. LIVIER completed DA-124, and sent to [facility].
[2018-12-29 19:52] VITALS: BP 123/56
--- NOTE | 2018-12-29 20:17 | NUR ---
ASSUMED CARE @ 19:15, PT IN ROOM, COOPERATED WITH ASSESSMENT, HRRR, LUNGS CTA ABD NORMOACTIVE X 4 Q. NO BM TODAY, REPORTS HAD BM YESTERDAY. DENIES SI AND HI. DENIES HALLUCINATION.
--- NOTE | 2018-12-29 22:39 | NUR ---
SUPPLIES PROVIDED FOR PT TO GET DRESSED IN THE MORNING. MEDS PROVIDED WHOLE WITH WATER. EYE DROPS PROVIDED UPON REQUEST. PT DENIES HALLUCINATIONS AND DEPRESSION. IN BED EYES CLOSED, RESPIRATIONS EVEN AND UNLABORED. WILL CONTINUE TO MONITOR Q 12 FOR PATIENT SAFETY. BED IN LOW POSITION, ALARM SET.
[2018-12-29 23:25] VITALS: BP 123/56
--- NOTE | 2018-12-30 05:47 | NUR ---
SLEPT 8.8 HOURS OVERNIGHT.
[2018-12-30 08:00] VITALS: BP 137/58
--- NOTE | 2018-12-30 18:20 | NUR ---
PATIENT HAS BEEN PARTICIPATING IN GROUPS THROUGH SHIFT & VISITING WITH OTHER PATIENTS. PATIENT HAS BEEN OUT OF ROOM FOR THE ENTIRE SHIFT EXCEPT TO USE RESTROOM & FOR GROUPS. PATIENT CALM & PLEASANT THROUGH SHIFT.
[2018-12-30 19:23] VITALS: BP 112/46
--- NOTE | 2018-12-31 03:39 | NUR ---
ASSUMED CARE @ 19:15. IN DAY ROOM SOCIALIZING WITH PEERS AND WATCHING TV. A&OX4. DENIES SI AND HI. DENIES HALLUCINATIONS, AUDIO OR VISUAL TODAY. HRRR, LUNGS CTA, ABD NORMOACTIVE X 4 Q. HAD A BM TODAY. ASKED FOR MEDS TO HELP HER HAVE A BM. WILL CALL DOCTOR IN THE MORNING TO REQUEST AN ORDER. IS EXPERIENCING REDNESS AND SORENESS UNDER BREAST BILAT. RETIRED TO BED @ 10:30, AND SLEPT WELL, OCCASIONALLY GETTING UP IN THE NIGHT TO USE THE TOILET, VOIDING URINE, NO BM OUTPUT. BED IN LOW POSITION, BED ALARM SET, WILL CONTINUE TO MONITOR Q 12 MINUTES FOR PATIENT SAFETY.
[2018-12-31 04:47] VITALS: BP 112/46
--- NOTE | 2018-12-31 06:15 | NUR ---
SLEPT 8.2 HOURS OVERNIGHT.
[2018-12-31 09:07] VITALS: BP 136/50
[2018-12-31 17:32] VITALS: BP 136/50
--- NOTE | 2018-12-31 17:38 | NUR ---
ASSUMED CARE AT 0700 THIS MORNING. PT. UP AND ON THE UNIT INTERACTING WITH PEERS. SHE ATE MEALS ON THE UNIT. SHE WAS COOPERATIVE WITH MEDICATIONS. SHE ATTENDED GROUPS. DENIES SI/HI AND NO S/S AVH NOTED TODAY. SHE HAS NOT MADE ANY COMPLAINTS TODAY.
[2018-12-31 20:07] VITALS: BP 136/51
--- NOTE | 2019-01-01 00:14 | NUR ---
Care assumed of patient at 1915: Patient alert and oriented x3. Patient sitting in day room playing cards with peers at start of shift. Patient calm and cooperative. Patient denies SI/HI/AH/VH. No s/s of delusional or paranoia behaviors. Patient ate 100% HS snack. Took HS medication without difficulty. Patient appears to be more quiet this evening than previous evenings. Patient reports that she is tired from a long day. Patient retired to bed without difficulty and has been resting quietly.
--- NOTE | 2019-01-01 09:07 | NUR ---
Followup: Nutrition intake has improved more consistently eating 100% of meals and supplement plus snack. BG controlled. Wt 170-174 lb throughout admit. Continue to offer oral supplement. Remains low nutrition risk
[2019-01-01 09:15] VITALS: BP 124/58
[2019-01-01 19:48] VITALS: BP 141/61
--- NOTE | 2019-01-01 22:08 | NUR ---
Care assumed of patient at 1915: Patient sitting in day room playing cards with peers at start of shift. Smiling, laughing and interactive. Patient alert and oriented x4. Pleasant and cooperative. Took HS medication without difficulty. Ate 100% snack. Incontinent of bladder. Denies SI/HI/AH/VH. No s/s of delusional or paranoia behaviors. Patient reports discomfort under her right breast. Redness observed. Skin intact. Area cleansed with soap and water, dried well and barrier cream applied. Wash cloth placed under right breast to decrease skin to skin contact. Patient went to bed without difficulty and has been resting quietly.
--- NOTE | 2019-01-02 10:14 | NUR ---
0700: Report rec from noc shift, care assumed. [id number]: Ambulatory in room, halls and to DR, uses walker for assist, gait steady/safe. Alert, oriented to name, place and year. Pleasant mood, cooperative with staff. Feeds self, appetite good, takes meds whole w/o difficulty. Attended 0900 group activity, 100% particpation.
[2019-01-02 10:26] VITALS: BP 107/46
[2019-01-02 19:54] VITALS: BP 129/62
--- NOTE | 2019-01-02 23:33 | NUR ---
PT AMBULATING FROM ACTIVITIES ROOM TO PT ROOM WITH WALKER AND STANDBY ASSIST AND IS TOLERATING WELL. DENIES PAIN. VOIDING PER BATHROOM. RESTING COMFORTABLY. NO NEEDS VOICED. WILL CONTINUE TO PROVIDE FREQUENT OBSERVATION.
[2019-01-03 07:30] VITALS: BP 144/78
--- NOTE | 2019-01-03 07:35 | NUR ---
PT UP THIS AM, DENIES ANY PAIN. PT LUNGS CLEAR AND ON ROOM AIR. PT UP WITH WALKER. PT ORIENTED X3.
[2019-01-03 09:35] VITALS: BP 144/78
--- NOTE | 2019-01-03 14:50 | NUR ---
PT DIAPHORETIC AND STATED SHE FELT WEIRD. VS TAKEN 125/66, RESP 16, PULSE 72. CHECKED PT ACCUCHECK AND WAS 57. GIVING PT OJ AND A SNACK, WILL GIVE APPLE JUICE ALSO AND RECHECK IN 20 MIN.
--- NOTE | 2019-01-03 15:15 | NUR ---
LIVIER sent updates to [facility]
--- NOTE | 2019-01-03 15:32 | NUR ---
RECHECKED BLOOD GLUCOSE AND WAS 102, PT STATED SHE FELT BETTER.
[2019-01-03 19:58] VITALS: BP 137/47
--- NOTE | 2019-01-04 00:55 | NUR ---
PT AMBULATING WITH WALKER INDEPENDENTLY AND IS TOLERATING FAIR. VOIDING PER TOILET. DENIES PAIN. RESTING COMFORTABLY. NO NEEDS VOICED. WILL CONTINUE TO PROVIDE FREQUENT OBSERVATION.
[2019-01-04 09:01] VITALS: BP 126/53
[2019-01-04 19:58] VITALS: BP 106/48
--- NOTE | 2019-01-04 22:35 | NUR ---
PT WATCHING TV WITH PEERS, SMILING AND TALKING. PT COMPLIANT WITH MEDS AND HS SNACK. AMBULATING STEADY WITH WALKER. NO PARANOID STATEMENTS.
[2019-01-05 08:46] VITALS: BP 139/78
--- NOTE | 2019-01-05 14:20 | NUR ---
ALERT AND INTERACTIVE. ANSWERING QUESTIONS APPROPRIATELY. STATES SHE DOES NOT HAVE PAIN. IN ACTIVITY ROOM TALKING WITH PEERS AND STAFF. PARTICIPATING IN GROUP W/O S/O DISTRESS. STATES SHE IS READY TO GO HOME BUT HAPPY WITH CURRENT CARE.
--- NOTE | 2019-01-05 16:44 | NUR ---
LIVIER and Dr. Boone has spoken with Francine the pt daughter concerning her d/c to [facility]. LIVIER explained according to [facility] pt was accepted as level I screening applicants. LIVIER follow-up with Elenita from [facility] concerning pt application. Elenita mention that all she need is a letter from the doctor stating that pt is not a harm to herself or toher. LIVIER provided that letter to Elenita on today. LIVIER will follow-up with [facility] on tomorrow.
[2019-01-05 20:06] VITALS: BP 128/69
--- NOTE | 2019-01-05 22:02 | NUR ---
Pt smiling and watching tv with peers. Compliant with hs meds and snack. Ambulates with walker, steady gait, good eye contact, cheerful and thanking staff often.
--- NOTE | 2019-01-06 11:20 | NUR ---
Followup: remains on carb controlled diet, eating 50-100% of meals. Wt gain continues to 177 lb (7 lb gain since admit). BG 141-235. Will discontinue glucerna shakes. Low nutrition risk
--- NOTE | 2019-01-06 11:22 | NUR ---
LIVIER and Dr. Boone left a voicemail with joe pt daughter concerning d/c home with her or AL through [facility]. LIVIER will follow-up with pt family. LIVIER left a voicemail with Rodriguez at [facility] concerning admission. LIVIER will follow-up with the NF. Dr. Boone met with pt son Jorge Luis concerning the pt going to her daughter house on today, January 06, 2019. LIVIER will follow-up with pt concerning d/c .
--- NOTE | 2019-01-06 12:53 | NUR ---
0700: Report rec from noc shift, care assumed. 0730: Ambulatory with walker in room, halls and to DR, gait steady/safe. Alert, oriented to name, place and time. Feeds self, appetite good, takes meds whole w/o difficulty, denies pain or discomfort at this time. Possible discharge to home/LTC today. Cooperative with staff and socializes well with other pts.
--- NOTE | 2019-01-06 14:35 | NUR ---
LIVIER left a voicemail for the pt daughter Francine concerning been d/c home with her or another NF. LIVIER explained that pt would have to be d/c on Tuesday, January 08, 2019. LIVIER provided contact information and requested a call back.
[2019-01-06 19:45] VITALS: BP 137/51
--- NOTE | 2019-01-06 22:49 | NUR ---
RECEIVED REPORT FROM OFFGOING DAY NURSE AND ASSUMED CARE @ 19:15. SITTING IN THE DAY ROOM AND SOCIALIZING WITH PEERS AND WATCHING BASEBALL ON TV. A&O X 3-4. DENIES SI AND HI. DENIES DEPRESSION OR FEELING SAD. DENIES HALLUCINATIONS TODAY. WHEN GIVEN HS MEDS WHOLE WITH WATER, REQUESTED TYLENOL AND HER "SLEEPING PILL". TYLENOL 650 GIVEN FOR GENERAL PAIN, HALDOL 2 MG GIVEN @ 20:40. WILL CONTINUE TO MONITOR Q 12 FOR PATIENT SAFETY.
[2019-01-07 01:47] VITALS: BP 137/51
--- NOTE | 2019-01-07 06:32 | NUR ---
slept 7.2 hours overnight
[2019-01-07 08:23] VITALS: BP 130/65
--- NOTE | 2019-01-07 10:55 | NUR ---
Alert and oriented. Fully engaged in care. Denies pain and suicidal ideation. States she is ready to go home. Skin under R breast discolored but not red/pink, improved from 2 days ago. Small 2 cm area under L breast, right side with slight pink, increased from 2 days ago. Self applied cream. No other signs of skin impairment.
[2019-01-07 19:44] VITALS: BP 130/46
--- NOTE | 2019-01-07 22:46 | NUR ---
RECEIVED REPORT FROM OFFGOING DAY NURSE. ASSUMED CARE @ 19:15. SITTING IN THE DAY ROOM AT A TABLE INTERACTING WITH PEERS AND WATCHING TV. WHEN FOOTBALL GAME CAME ON SHE WATCHED AND CHEERED. REQUESTED HALDOL 2 MG AT HS, PROVIDED @ 20:40. REQUESTED AND PROVIDED CEPECOL COUGH DROP, SAYS HER VOICE IS LOW. REPORTS THAT SHE IS LOOKING FORWARD TO DISCHARGE FROM [facility]. A&OX4, DENIES SI/HI. DENIES HALLUCINATIONS TODAY. WILL CONTINUE TO MONITOR Q 12 MINUTES FOR PATIENT SAFETY.
[2019-01-07 22:52] VITALS: BP 130/46
--- NOTE | 2019-01-08 04:06 | NUR ---
IN BED, EYES CLOSED, RESPIRATIONS EVEN AND UNLABORED. BED IN LOW POSITION, BED ALARM SET, WILL CONTINUE TO MONITORQ 12 MINUTES FOR PATIENT SAFETY.
--- NOTE | 2019-01-08 06:13 | NUR ---
SLEPT 6.8 HOURS OVERNIGHT 01/07/19.
[2019-01-08 07:20] VITALS: BP 148/81
--- NOTE | 2019-01-08 08:15 | NUR ---
THIS MORNING AT 0700 THE PT. THREW A CUP AT THE SUPERVISOR BRAKE REPAIR NURSE AND TOLD HER "GET ME SOME COFFEE". THE NIGHT NURSE TOLD HER SHE WOULD NOT GET HER COFFEE IF SHE WAS GOING TO THROW HER CUP AT HER. THIS HIGHWAY ENGINEER WENT OUT TO TALK TO THE PT. ASKING HER TO BE CALM AND SHE WOULD GET COFFEE IN A BIT. HOWEVER, THERE ARE NO CUPS ON THE UNIT AT THIS TIME. DIETARY WAS NOTIFIED OF NEED FOR CUPS. THE PT. STOOD UP AND SAID, "DON'T TELL ME HOW TO ASK FOR COFFEE!" "YOU GET ME COFFEE!" REQUEST WAS DENIED AND PT. INFORM SHE WOULD HAVE TO BE CALM COFFEE IS HOT AND NO ONE WANTS COFFEE ON THEM. SHE STARTED SAYING THIS HIGHWAY ENGINEER WAS A RACIST BECAUSE THE NIGHT NURSE WOULD NOT GET HER COFFEE. SHE STATED SHE WROTE MY NAME DOWN AND I WOULD BE REPORTED FOR RACISM. THIS RN WALK AWAY AT THAT POINT.
--- NOTE | 2019-01-08 11:37 | NUR ---
LIVIER met with Treatment team concerning pt d/c to [facility]. LIVIER explained that there was several referrals sent out [facility], [facility], [facility], and [facility]. LIVIER explained that she heard from [facility], and [facility] denied her due to not be able to afford the cost. SW mention that she will call the pt daughter per director to see if she will accept the payment of the hospital. LIVIER will follow-up with pt, and team.
--- NOTE | 2019-01-08 17:34 | NUR ---
0730 Alert and cooperative. States she is angry because 2 staff members were rude to her this morning. States she has written down details of event. Easily redirected. Insulin given SQ per sliding scale.
[2019-01-08 19:32] VITALS: BP 127/54
--- NOTE | 2019-01-09 06:23 | NUR ---
VSS, WATCHING TV WITH PEERS IN THE DAY ROOM UNTIL BED TIME. TOOK HS PILLS WHOLE WITH WATER. REQUESTED AND WAS PROVIDED WITH TYLENOL FOR GENERAL PAIN AND HALDOL FOR SLEEP. TOTAL SLEEP HOURS 8.6.
[2019-01-09 07:25] VITALS: BP 147/84
--- NOTE | 2019-01-09 16:36 | NUR ---
0710: Report rec from [facility] shift, care assumed. [id number]: Ambulatory with walker in room, to BR, and to DR, gait slow/steady. Mood is cheerful, cooperative with staff. Feeds self, appetite good, takes po meds whole w/o difficulty. Denies nausea or dizziness. Attended 0900 therapy group, 100% participation.
[2019-01-09 19:54] VITALS: BP 125/42
[2019-01-09 19:56] VITALS: BP 140/54
--- NOTE | 2019-01-10 00:19 | NUR ---
Care assumed of patient at 1915: Patient alert and oriented x4. Patient calm, pleasant and cooperative. No aggression, agitation or anxiety observed/reported. Denies SI/HI/AH/VH. No s/s of paranoia or delusional behavior. Patient ate 100% HS snack. Took HS medication without difficulty. Patient interacting well with staff and peers. Smiling, laughing, appears happy. Patient denies pain or discomfort. Patient retired to bed and fell asleep without any difficulty. Patient woke up to use the bathroom at approximately 2300. Patient requested a sleeping pill at that point to help her go back to sleep. When nurse followed up with patients a few minutes later, patient had already fallen back to sleep and has been resting quietly.
[2019-01-10 09:06] VITALS: BP 130/58
--- NOTE | 2019-01-10 19:21 | NUR ---
PATIENT UP AD CHELLE WITH WALKER. APPROPRIATELY INTERACTED WITH OTHER PATIENTS AND STAFF. PARTICIPATING IN GROUPS AND ENCOURAGING OTHER PATIENTS TO PARTICIPATE WELL.
[2019-01-10 19:51] VITALS: BP 132/73
--- NOTE | 2019-01-11 00:26 | NUR ---
Care assumed of patient at 1915: Patient alert and oriented x4. Patient calm, pleasant and cooperative. Patient did become irritable and short with staff when talking about discharge plans. Patient was easily re-directed. Patient ate 100% snack. Took HS medication without difficulty. Patient reported that she wanted a sleeping pill due to getting up 2 times the previous night to use the bathroom. Patient educated that she was probably awake because she needed to use the bathroom, not because she couldn't sleep. Reassured patient that this nurse checked on her approximately 10 minutes after she used the bathroom and she was sleeping quietly. Patient stated that she felt like she was laying there for "hours" and could not go back to sleep. Patient reported that she felt better after speaking with nurse and would try to sleep without "sleeping pill". Patient denies SI/HI/AH/VH. No s/s of delusional or paranoia behaviors. Patient was able to complete HS personal hygiene and retire to bed. Patient has been monitored q12 minutes since and has appeared to be sleeping in bed quietly.
[2019-01-11 11:50] VITALS: BP 123/73
--- NOTE | 2019-01-11 17:02 | NUR ---
PATIENT CALM & APPROPRIATE THIS SHIFT. INTERACTING WITH OTHER PATIENTS AND STAFF APPROPRIATELY. PARTICIPATING IN GROUPS. PATIENT WANTS TO MAKE SURE SHE IS DISCHARGING TOMORROW.
[2019-01-11 19:13] VITALS: BP 138/82
[2019-01-12 01:29] VITALS: BP 138/82
--- NOTE | 2019-01-12 04:54 | NUR ---
PT OUT WITH PEERS, WATCHING TV EARLY IN THE SHIFT. QUIET AND COOPERATIVE. EARLY TO BED, AFTER EVENING SNACK. TOOK HS MEDS PRESCRIBED. LOOKING FORWARD TO DC THIS AM. UP TO BR OVERNIGHT, BUT SLEPT WELL.
--- NOTE | 2019-01-12 07:50 | NUR ---
PT SITTING WITH OTHER RESIDENTS CRYING. PT SUPPOSED TO DISCHARGE TODAY AND IS SAD AND SAID SHE WILL MISS US, AND THANKING EVERYONE FOR THE CARE. PT DENIES ANY PAIN AT THIS TIME. PT UP WITH WALKER WITH STEADY GAIT.
[2019-01-12 08:00] VITALS: BP 135/74
[2019-01-12 09:38] VITALS: BP 135/74
--- NOTE | 2019-01-12 15:00 | NUR ---
LIVIER and Dr. Boone called in spoke with pt daughter Francine concerning [facility] placement. LIVIER explained that pt has been denied for [facility], [facility], [facility], and [facility]. LIVIER explained that referrals need to be sent to [facility]TC placement. Francine became upset in started yelling that we need to do our job, and do as she says concerning the referral. Dr. Boone mention that is a [facility] find placement in she accepted inot the facility then the mother will need to be d/c. Francine stated that she does not want her mother to be placed at [facility], and facility that has horrible reviews. SW mention that she will send a referral to [facility], [facility], [facility], and [facility]. [place]ington mention became upset in mention that she does not want SW to send her mother to no place that i would not send SW damedmar mother. LIVIER explained that she will not be allowed to curse, or raise her voice on the phone. Francine mention that she will do as damedmar well please. SW mention that she will have the Director speak with her concerning her mother care, and asked if she would like her contact number. Francine hung up the phone on the SW. LIVIER will follow-up with the referrals.
--- NOTE | 2019-01-12 15:37 | NUR ---
LIVIER recieved a call from Gaviota at [facility] that will be accepted into [facility]. [facility] LIVIER will notify pt daughter Francine concerning the acceptance.
--- NOTE | 2019-01-12 15:41 | NUR ---
LIVIER and Dr. Boone called in left a voicemail concerning placement approval. LIVIER provided contact information, and requested a phone call back.
[2019-01-12 19:37] VITALS: BP 149/62
--- NOTE | 2019-01-12 19:42 | NUR ---
RECEIVED REPORT FROM OFFGOING NURSE, RELAXING IN DAY ROOM SITTIN ON THE COUCH WITH PEERS WATCHING SPORTS ON TV. COOPERATED WITH ASSESSMENT, REPORTED SADNESS RELATED TO NOT GOING HOME TODAY. WILL CONTINUE TO MONITOR Q 12 MINUTES FOR PATIENT SAFETY.
--- NOTE | 2019-01-12 22:00 | NUR ---
AGITATION INCREASED WHEN THE STAF TURNED LIGHTS OUT IN THE DAY ROOM @ 20:30 WHEN PT AND PEERS WERE WATCHING BASEBALL ON TV. PT WOULD NOT EXPLAIN WHAT HAPPENED OTHER THAN TO SAY THAT THAT STAFF MEMEBER WAS CRUEL AND PT WOULD NOT TAKE MEDS FROM HER. PT COOPERATED WITH MEDICATION INCLUDING PRN HALDOL, AND PRN TYLENOL. RETIRED TO BED @ 21:30 WHILE THE GAME WAS STILL BEING PLAYED.
[2019-01-12 22:19] VITALS: BP 149/62
--- NOTE | 2019-01-13 05:47 | NUR ---
HALDOL 2 MG GIVEN @ 0100 FOR SLEEPLESSNESS AND MILD HALLUCINATION. SLEPT TOTAL OF 7.8 HOURS SLEEP.
[2019-01-13 07:30] VITALS: BP 122/58
--- NOTE | 2019-01-13 07:30 | NUR ---
PT DENIES ANY PAIN. PT UP WITH WALKER. PT ORIENTED X3. PT LUNGS CLEAR. PT HAS SOME REDDNESS UNDER BREAST BILATERALY. PT CONVERSING WITH OTHER RESIDENTS.
[2019-01-13 08:23] VITALS: BP 122/58
--- NOTE | 2019-01-13 10:59 | NUR ---
Patient Name: MILA PAZ Admission Date: 12/16/18 DISCHARGE PLAN: Pt will be d/c to [facility] Care Assessment: Pt was assessed by Dr. Boone in diagnosed with Mild major Neurocognitve Disorder. Level II Assessment: Pt scored on Level I Transportation: Pt will be transported by the transport Special Instructions/Notes: Pt will need a memory care setting DISCHARGE TO FACILITY: Memory Care unit Facility: [facility] Address: [address] [place] [address] Contact Name: Gaviota PCP: DIAN Psychiatrist: TOO Psychiatrist
[2019-01-13] MEDS ORDERED: LIPITOR 20 MG T20 M1 PO (11:10)
[2019-01-13] MEDS ORDERED: HYDRALAZINE 5050 MG PO (11:11)
[2019-01-13] MEDS ORDERED: LISINOPRIL10 MG PO (11:11)
[2019-01-13] MEDS ORDERED: NORVASC5 MG PO (11:11)
[2019-01-13] MEDS ORDERED: PROTONIX40 M1 PO (11:12)
[2019-01-13] MEDS ORDERED: NAMENDA 5 MG TAB5 M1 PO (11:12)
[2019-01-13] MEDS ORDERED: ACTOS 45 MG45 M1 PO (11:13)
[2019-01-13] MEDS ORDERED: VITAMIN D5000 UNIT PO (11:13)
--- NOTE | 2019-01-13 11:30 | NUR ---
PT LEFT VIA W/C VAN TO [facility].
--- NOTE | 2019-01-13 11:45 | NUR ---
GAVE REPORT TO NURSE STERLING AT [facility].
== END 2019-01-13 11:30 | DRG 885 ==
LOC: SBH 12:24
PROVIDERS: Internal Medicine; ADMIT Psychiatry & Neurology Psychiatry
DX: F31.30 Bipolar disorder, current episode depressed, mild or moderate severity, unspecified (principal); F01.51 Vascular dementia, unspecified severity, with behavioral disturbance; F02.81 Dementia in other diseases classified elsewhere, unspecified severity, with behavioral disturbance; G30.9 Alzheimer's disease, unspecified; E11.9 Type 2 diabetes mellitus without complications; I10 Essential (primary) hypertension; M13.0 Polyarthritis, unspecified; L60.3 Nail dystrophy; K21.9 Gastro-esophageal reflux disease without esophagitis; I25.10 Atherosclerotic heart disease of native coronary artery without angina pectoris; E78.5 Hyperlipidemia, unspecified; B35.1 Tinea unguium; Z96.641 Presence of right artificial hip joint; Z96.652 Presence of left artificial knee joint; Z95.1 Presence of aortocoronary bypass graft; Z90.710 Acquired absence of both cervix and uterus; Z79.82 Long term (current) use of aspirin; Z79.899 Other long term (current) drug therapy; Z82.49 Family history of ischemic heart disease and other diseases of the circulatory system; Z83.3 Family history of diabetes mellitus
CPT/HCPCS: 10880

== ENCOUNTER 2019-06-14 11:03 | Emergency (ER) | payer OTHER ==
[~2019-06-14] VITALS: Ht 167.6 cm; Wt 78.9 kg
[~2019-06-14 11:03] MED LIST changes: +ASPIR 8181 M1 PO; +HYDRALAZINE 5050 MG PO; +LIPITOR 20 MG T20 M1 PO; +NAMENDA 5 MG TAB5 M1 PO; +NORVASC5 MG PO; +PROTONIX40 M1 PO; +VITAMIN D5000 UNIT PO
[2019-06-14 11:48] LABS: HEMATOCRIT 30.3 % (37.0-47.0); HEMOGLOBIN 9.9 gm/dL (12.0-15.0); MCH 25.2 pg (26.0-34.0); MCHC 32.8 g/dL (28.0-37.0); RBC 3.93 mil/uL (4.20-5.00); RDW 18.8 % (10.5-14.5); WBC 7.7 thou/uL (4.0-11.0)
[2019-06-14 12:07] LABS: CALCIUM 9.3 mg/dL (8.5-10.1); CREATININE 1.5 mg/dL (0.6-1.0); POTASSIUM 4.7 mmol/L (3.5-5.1)
[2019-06-14] MEDS ORDERED: LIPITOR 20 MG T20 M1 PO (12:30)
[2019-06-14] MEDS ORDERED: NAMENDA 10 MG T10 MG PO (12:31)
[2019-06-14] MEDS ORDERED: DEPAKOTE 250MG250 M1 PO (12:31)
[2019-06-14] MEDS ORDERED: ACID CONTROLLER20 MG PO (12:31)
[2019-06-14] MEDS ORDERED: MELATONIN3 M1 PO (12:32)
[2019-06-14] MEDS ORDERED: LISINOPRIL2.5 MG PO (12:32)
[2019-06-14] MEDS ORDERED: ACTOS 45 MG45 M1 PO (12:32)
[2019-06-14] MEDS ORDERED: MUCINEX600 MG PO (12:32)
[2019-06-14] MEDS ORDERED: NORVASC 2.5 MG2.5 M1 PO (12:33)
[2019-06-14] MEDS ORDERED: ASPIR 8181 M1 PO (12:34)
[2019-06-14] MEDS ORDERED: ARTIFICIAL TEAR15 M4 OTIC (12:34)
[2019-06-14] MEDS ORDERED: HYDRALAZINE 2525 MG PO (12:35)
[2019-06-14] MEDS ORDERED: PROTONIX40 M3 PO (12:35)
[2019-06-14] MEDS ORDERED: BUSPIRONE HCL10 MG PO (12:35)
[2019-06-14] MEDS ORDERED: KEFLEX500 M1 PO (12:36)
[2019-06-14] MEDS ORDERED: BACTRIM DS TAB1 EACH PO (12:43)
[2019-06-14 13:54] VITALS: BP 149/88
== END 2019-06-14 13:55 | disposition home or self-care (01) ==
LOC: ER 11:03
PROVIDERS: Nurse Practitioner Family
DX: L03.115 Cellulitis of right lower limb (principal); I10 Essential (primary) hypertension; E11.9 Type 2 diabetes mellitus without complications; F03.90 Unspecified dementia, unspecified severity, without behavioral disturbance, psychotic disturbance, mood disturbance, and anxiety

== ENCOUNTER 2020-07-04 17:02 | Emergency (ER) | payer OTHER ==
[~2020-07-04] VITALS: Ht 167.6 cm; Wt 81.7 kg
[~2020-07-04 17:02] MED LIST changes: +ACID CONTROLLER20 MG PO; +ARTIFICIAL TEAR15 M4 OTIC; +BACTRIM DS TAB1 EACH PO; +BUSPIRONE HCL10 MG PO; +DEPAKOTE 250MG250 M1 PO; +HYDRALAZINE 2525 MG PO; +KEFLEX500 M1 PO; +LISINOPRIL2.5 MG PO; +MELATONIN3 M1 PO; +MUCINEX600 MG PO; +NORVASC 2.5 MG2.5 M1 PO; +PROTONIX40 M3 PO
[2020-07-04 18:38] LABS: EOSINOPHILS 1.4 % (0.0-3.0); HEMATOCRIT 27.3 % (37.0-47.0); MCV 67.8 fL (80.0-100.0); WBC 6.2 thou/uL (4.0-11.0)
[2020-07-04 18:40] LABS: ABSOLUTE NEUTROPHILS 2.9 thou/uL (1.4-8.2); BASOPHILS 0.8 % (0.0-2.0); HEMOGLOBIN 8.5 gm/dL (12.0-15.0); LYMPHOCYTES 44.3 % (24.0-44.0); MCH 21.1 pg (26.0-34.0); MCHC 31.1 g/dL (28.0-37.0); MONOCYTES 6.5 % (1.0-8.0); PLATELET COUNT 356 thou/uL (150-400); RBC 4.02 mil/uL (4.20-5.00); RDW 18.4 % (10.5-14.5)
[2020-07-04 18:51] LABS: CALCIUM 9.3 mg/dL (8.5-10.1); CREATININE 1.6 mg/dL (0.6-1.0); POTASSIUM 3.8 mmol/L (3.5-5.1)
[2020-07-04 18:55] LABS: ALBUMIN 3.4 g/dL (3.4-5.0); TOTAL BILIRUBIN 0.3 mg/dL (0.2-1.0); TOTAL PROTEIN 7.7 g/dL (6.4-8.2)
[2020-07-04] MEDS ORDERED: NEURONTIN 300M300 M2 PO (19:19)
[2020-07-04 19:30] VITALS: BP 159/86
[2020-07-04] MEDS ORDERED: NEURONTIN300 MG PO (19:34)
== END 2020-07-04 19:35 ==
LOC: ER 17:02
PROVIDERS: Emergency Medicine
DX: S63.501A Unspecified sprain of right wrist, initial encounter (principal); S09.90XA Unspecified injury of head, initial encounter; D64.9 Anemia, unspecified; G62.9 Polyneuropathy, unspecified; I10 Essential (primary) hypertension; E11.9 Type 2 diabetes mellitus without complications; Z79.82 Long term (current) use of aspirin; Z79.899 Other long term (current) drug therapy; W18.39XA Other fall on same level, initial encounter; Y93.89 Activity, other specified; Y92.89 Other specified places as the place of occurrence of the external cause; Y99.8 Other external cause status